=== PATIENT | male | born 1960 | race Caucasian/White ===

== ENCOUNTER 2017-02-06 11:47 | Emergency (ER) | payer OTHER ==
[~2017-02-06] VITALS: Ht 175.3 cm; Wt 60.9 kg
[2017-02-06 11:51] VITALS: TEMP 36.4; Ht 175.3 cm; Wt 60.9 kg
[2017-02-06] MEDS ORDERED: CYCL10TA6 PO (12:39)
[2017-02-06] MEDS ORDERED: IPRA1AER2 INH (12:39)
[2017-02-06] MEDS ORDERED: CYM/30 PO (12:39)
[2017-02-06] MEDS ORDERED: HYDR-5688 PO (12:39)
--- NOTE | 2017-02-06 13:11 | DIAGNOSTIC IMAGING REPORT ---
RIGHT SHOULDER 3 VIEWS HISTORY: RIGHT WITH Y VIEW, PAIN AFTER INJURY Right COMPARISON: None. FINDINGS: There is no fracture or dislocation. Soft tissues are unremarkable. The right clavicle is intact. Mild degenerative changes at the acromioclavicular and glenohumeral joints. IMPRESSION: Mild osteoarthritis. No fracture or dislocation within the right shoulder. Electronically signed by: Danilo Fine M.D. 02/06/2017 1:10 PM Dictated Date/Time: 02/06/2017 1:09 PM
--- NOTE | 2017-02-06 13:51 | EMERGENCY ROOM VISIT NOTE ---
ED Visit Note First contact with patient: 12:18 CHIEF COMPLAINT: Right shoulder injury 3 days ago HISTORY OF PRESENT ILLNESS: Patient is a [id number] 56-year-old white male who presents to the emergency department accompanied by a female friend for evaluation of right shoulder pain after an injury 3 days ago. He states that he was moving a washer up a few steps, when he reports that the washer pushed him backwards, causing him to fall, striking the back of his shoulder, then the "washer landed on top of him." He states he had pain immediately in the right scapular region and in the back of the right shoulder, but his pain worsened the following day, he now notes discomfort and spasms that radiate down his forearm. He occasionally has some tingling into the right hand. He has tried a hot tub, stretching, massage, heat, TENS unit, Aleve, Tylenol and Vicodin. He reports a remote history of a right clavicle fracture. He rates his pain a 10/10. It is worse with any attempts at movement. REVIEW OF SYSTEMS: Review of systems as per HPI. All other systems reviewed were negative. At least 6 systems reviewed. PMH: Review of systems as per HPI. All other systems reviewed were negative. 10 systems reviewed. SOCIAL HISTORY: Patient lives at home. Positive tobacco use. He is disabled. PHYSICAL EXAM: Vital Signs: Reviewed nurse's notes. CONSTITUTIONAL: Patient is a well-appearing 56-year-old white male who is awake and alert and seated in a wheelchair. MUSCULOSKELETAL: Examination of the right shoulder does not demonstrate any obvious deformity. No ecchymosis, abrasions or outward signs of trauma are noted. Exam is extremely difficult secondary to patient guarding and poor cooperation. He jumps and moves away from the examiner even with the lightest touch of his shoulder. It is difficult to localize his pain. The right upper extremity is neurovascularly intact. There is no discomfort with wrist extension or flexion, elbow flexion or extension or pronation or supination of the forearm. Distal pulses are easily palpable. Sensation light touch is intact over the entire right upper extremity. He has some discomfort in the right trapezius, no focal spasm. No pain over the spinous processes of the cervical spine, and full C-spine range of motion. EMERGENCY DEPARTMENT COURSE: X-rays of the right shoulder were obtained, and negative for acute fracture or bony abnormality. The patient was seen and assessed as above. His x-rays were obtained and were negative for acute bony abnormality. Possibility of a soft tissue injury was discussed including rotator cuff injury, capsule or labral tear, among others. The patient was fitted with an arm sling. He was encouraged to follow-up with orthopedics for further care and management of his injury. Patient was reviewed in the [facility] Prescription Drug Monitoring Program. He receives regular Mar[place]hal prescriptions from a provider in [place], last was filled the end of December. Medication reconciliation: I attest that I have personally reviewed the patient' s current medication list. Blood pressure screening : Patient was found to have normal blood pressure on screening and does not require follow-up. Problem List Medical Problems: (1) Chronic back pain Status: Chronic (2) COPD (chronic obstructive pulmonary disease) Status: Chronic Current/Historical Medications Scheduled Duloxetine HCl (Cymbalta), 30 MG PO HS Scheduled PRN Cyclobenzaprine Hcl (Flexeril), 10 MG PO TID PRN for PRN Hydrocodone/Acetaminophen 5MG/325MG (Mar[place]hal 5MG/325MG), 1 TABLET PO Q6 PRN for Pain Ipratropium-Albuterol (Combivent Respimat), 2 PUFFS INH QID PRN for Shortness of Breath Allergies Coded Allergies: Penicillins (Unverified Allergy, Unknown, DIZZINESS, 02/06/17) Vital Signs Date Time Temp Pulse Resp B/P (MAP) Pulse Ox O2 Delivery O2 Flow Rate FiO2 02/06/17 14:12 76 17 135/79 96 02/06/17 13:50 76 17 135/79 96 Room Air 02/06/17 11:51 36.4 78 18 139/86 95 Room Air Departure Information Impression Primary Impression: Right shoulder pain Referrals Candis Avalos D.O. (PCP) Nilson Perkins MD Patient Instructions [facility] Additional Instructions Continue your Marienthal as previously prescribed. Ibuprofen(Motrin, Advil) may be used for fever or pain. Use 600mg every six hours as needed. Take with food. Avoid using more than 2400mg in a 24 hour period. Do not use 2400mg per day for more than three consecutive days without physician direction. Prolonged inappropriate use can lead to stomach upset or ulcers. This medication can be taken if you need to drive, work, or perform activities which may be dangerous when taking narcotic pain medication. (AND/OR) Acetaminophen(Tylenol) may be used for fever or pain. Use 1000mg every six hours as needed. Avoid using more than 3000mg in a 24 hour period. This medication can be taken if you need to drive, work, or perform activities which may be dangerous when taking narcotic pain medication. Ice compresses for 20 minutes at a time four times daily for 2-3 days. Use the sling as instructed. Remove your arm from the sling 4-6 times a day and move all the joints around to keep them loose. Rest and elevate your injury. Continue current medications. Return to the ER immediately for any numbness, tingling, severe pain, extreme swelling in the extremity or as needed. Follow-up with [facility] for further care and management of your injury. Problem Qualifiers Primary Impression: Right shoulder pain Chronicity: acute Qualified Codes: M25.511 - Pain in right shoulder
[2017-02-06 14:12] VITALS: BP 135/79; PULSE 76; O2SAT 96
== END 2017-02-06 14:05 | disposition home or self-care (01) ==
LOC: C.EDB 11:49 → C.EDD 14:05
DX: M25.511 Pain in right shoulder (principal); W20.8XXA Other cause of strike by thrown, projected or falling object, initial encounter; F17.200 Nicotine dependence, unspecified, uncomplicated; G89.29 Other chronic pain; J44.9 Chronic obstructive pulmonary disease, unspecified; Z87.81 Personal history of (healed) traumatic fracture; Z79.899 Other long term (current) drug therapy; Z88.0 Allergy status to penicillin

== ENCOUNTER 2023-01-26 19:53 | Inpatient (IN) ==
--- NOTE | 2023-01-26 19:59 | Emergency Department Note ---
Impression & Plan Acute CVA (cerebrovascular accident), Weakness on left side of face, Muscle spasm ED Provider Note Name: SANJAY [id number] BERNARDA Age: 62 Sex: M Arrives Via: Ambulance Informant: Patient, EMS ED Provider: Cesar Solis MD Chief Complaint: Weakness Impression: As per impressions above Medical Decision Makin-year-old gentleman with history of COPD who smokes daily arrives for evaluation of strokelike symptoms. Patient last seen well at roughly 4 PM though he notes at that point even he was not feeling correct and had to go to his care home cell due to feeling weak. At around 7 PM noted by present staff to be significantly weak with slurred speech and left facial droop. 911 was called and he arrives to the ER around 8 PM. EMS called and just prior to arrival and thus stroke alert was called and admit patient on way to CT. Patient with left facial droop mildly slurred speech complaining of muscle spasms and total body weakness. He does appear to have slight left hand weakness but nonspecific and his entire body seems more weak. Patient is clearly uncomfortable though no clear etiology for that. CT of the head by my read no evidence of bleed but there is abnormal findings in the frontal cortex bilaterally. I discussed this with stroke neurology pending official CT read and given he is almost at 4.5 hours and symptoms may have actually going on longer than that plus unusual symptoms I think that TNKase is higher risk than would be benefit. Neurologist agreed with this approach and assessment. CT was read shortly thereafter and does confirm some subacute stroke anterior right brain. This furthermore confirms avoidance of TNKase. Patient was given a small dose of Dilaudid for pain control which did not seem to do so much but keeps complaining of spasms thus was given some Ativan and vastly improved. Given some IV fluids as well. Labs are unremarkable. These findings are most conclude that this is stroke related and probably occurred earlier in the day given its already showing up on CT. There is no clear LVO requiring transfer to higher level of care. Patient is not septic appearing. He has no findings of manages this on examination. There is no indication for LP at this time. He is tolerating secretions and able to swallow and thus was given aspirin 324 mg p.o. in the setting of CVA and mildly low magnesium and some IV magnesium as well. Hospitalist consulted for further management. Possibly just be some other etiology obviously treating a stroke is indicated. Hospitalist for further work up. Given that he improved with some Ativan I do not see any clear evidence of other abnormal cause of the spasm no indication for LP as above noted I think this is some on form of tetanus or Guillain-You Patient also did have some significant wheezing secondary to his COPD. He was given a nebulizer for this. Would hold off on steroids at this time. Prior Medical Record and Triage/Nursing Notes reviewed by Me Half-Way records reviewed by me. Patient confirms he does not take aspirin Differentials:Infection, dehydration, metabolic abnormality, hypo/hyper glycemia, electrolyte disturbance, anemia, hypoxia, cardiac sources, intracerebral event, toxicologic, neurologic, as well as other pathologies. Vital Signs: reviewed and remarkable for no significant abnormalities Interventions: Normal saline bolus, magnesium IV, aspirin p.o., DuoNeb Labs:Reviewed and remarkable for no significant abnormalities Imaging:CT of the head without contrast as per my informal interpretations no mass effect or bleed appreciated. Radiologist note likely subacute infarct frontal lobe. CT of the head and neck angio as per radiologist no LVO or acute concerning findings see the report for full X ray results are stated below per my interpretation: Chest: 1 view: No infiltrate, no effusion, normal cardiac border. Emphysematous findings noted. EKG:Per My Interpretation: As per my interpretation. Indication strokelike findings. Normal sinus rhythm at 63 bpm no ectopy no ischemia. QTc of 421. When compared to EKG of January 13, 2023 there is no significant change. Cardiac/Tele Monitoring: Cardiac Monitoring: An Order was placed for continuous cardiac monitoring. The monitor shows a rate of 60 with a normal sinus rhythm. Consults:Dr. Gilliam of the [facility]ist service Plan: Disposition: Hospitalization Condition: Fair History of Present Illness:62-year-old prisoner arrives for evaluation of strokelike symptoms. Patient notes that he started to feel unwell this afternoon and around 4:00 he went to his care home cell as he was just feeling too tired and weak. Staff at around 7 PM noted he had slurred speech and generalized weakness. EMS was called and they noted he was a bit more weak on his left side as well as with some slurred speech. He was too weak to stand on his own. Patient states that he has no history of stroke or cardiac disease. He smokes and is on no aspirin. He was seen about 2 weeks ago for COPD exacerbation. He denies any headache, neck pain, chest pain, abdominal pain though he notes muscle spasms all over his body. No interventions prior to arrival Past History:COPD, smoker Home Medications:Sertraline Allergies:Penicillin Vitals:Blood Pressure: 118/74, Pulse 70, RR 16, T 36.6C, O2 94% on RA Physical Exam: GENERAL: Patient is uncomfortable appearing and in mild distress. EYES: No scleral icterus, unremarkable pupils. HEAD: AT/NC NECK: No masses appreciated, nomeningismus, trachea is midline. RESPIRATORY: Mild diffuse wheezing but clear bilaterally otherwise CARDIOVASCULAR: Regular rate and rhythm.No murmurs, rubs, gallops appreciated. GASTROINTESTINAL: Abdomen soft, non-tender, no peritonitis.Bowel sounds positive.No masses appreciated. EXTREMITIES: Normal motion all extremities, no cyanosis, no edema. NEUROLOGIC: Alert and oriented, patient with slurred speech and what appears to be a left facial droop. He has diffuse full body weakness questionable left hand weakness compared to right. No sensation deficits. He is having spasms of his shoulders and back. SKIN: No rash, no jaundice, no diaphoresis. PSYCH: Appropriate GCS: 15 ED Course: Times/Reassessments: Extensive bedside care of patient. Reviewed possibility of TNKase and plan to hold off on this given the high risk. Critical Care: I have personally spent 35 minutes of critical care time in the direct management of this patient. Acute Stroke alert with consideration of thrombolytic and neuro team activation. This was a life/limb threatening event. This 35 minutes is in excess of all separately billable procedures. Cesar Solis MD Past Med/Surg History Medical History (Updated 01/27/23 @ 13:44 by Cesar Solis MD) COPD (chronic obstructive pulmonary disease) Family history of heart attack Family history of stroke Surgical History (Updated 01/27/23 @ 09:00 by Igor Nails MD) H/O hernia repair S/P tonsillectomy Family History Mother , age 84 of heart disease Coronary heart disease Heart disease Breast cancer Father , age 35 of a massive heart attack Myocardial infarction Social History (Updated 01/27/23 @ 09:02 by Igor Nails MD) Smoking Status: Former smoker Age Started Using Tobacco: 12; Age Quit Using Tobacco: 62; packs per day: 2; Second Hand Exposure: No; Do You Dip or Chew Tobacco: No; Hx Alcohol Use: Yes Alcohol type: beer Alcohol Intake Frequency: Monthly or Less Hx Substance Use: Yes Preferred Language: Ukrainian Communication Ability: Effective 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 Required: No Beliefs That Will Affect Care: None Current Living Situation: Other Current Living Situation Comment: Incarcerated current occupational status: unemployed 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 Feels Safe at Home: Yes Assistive Devices: Denture - Upper Allergies Allergies Allergy/AdvReac Type Severity Reaction Status Date / Time Penicillins Allergy Unknown DIZZINESS Unverified 02/06/17 12:37 Home Meds Home Medications Medication Instructions Recorded Confirmed albuterol sulfate 90 mcg/actuation 3 puff inhalation Q4 01/26/23 01/26/23 aerosol inhaler fluticasone 100 mcg-salmeterol 50 1 inh inhalation BID 01/26/23 01/26/23 mcg/dose blistr powdr for inhalation (Advair Diskus) sertraline 25 mg tablet 75 mg PO HS 01/26/23 01/26/23 Previous Rx's Medication Instructions Recorded aspirin 81 mg tablet,delayed 81 mg PO QAM #30 tabs 01/27/23 release atorvastatin 40 mg tablet 40 mg PO QAM #30 tabs 01/27/23 azithromycin 500 mg tablet See Rx Instructions PO .COMPLEX #3 01/27/23 tabs tiotropium bromide 2.5 2 inh inhalation DAILY #4 grams 01/27/23 mcg/actuation mist for inhalation (Spiriva Respimat) Results & Data (ED) Vital Signs Vital Signs - 24 hr 01/26/23 19:48 01/26/23 19:48 01/26/23 19:48 Temperature 37.4 C Temperature Source Oral Pulse Rate 62 Pulse Rate from SpO2 Sensor Pulse Rhythm Regular Respiratory Rate 18 Respiratory Effort / Characteristics Non-Labored Non-Labored Respiratory Depth Normal Normal Blood Pressure 149/87 H Blood Pressure Mean 107 Pulse Oximetry 94 99 Oxygen Delivery Method Room Air Sepsis Recent Fever Within 48 Hours No Sepsis New/Unexplained Change in Mental Status No Sepsis Action Taken by Nursing No Action Required 01/26/23 20:21 01/26/23 20:21 01/26/23 20:30 Temperature Temperature Source Pulse Rate 62 65 69 Pulse Rate from SpO2 Sensor 63 70 Pulse Rhythm Respiratory Rate 15 20 Respiratory Effort / Characteristics Respiratory Depth Blood Pressure Blood Pressure Mean Pulse Oximetry 94 96 Oxygen Delivery Method Sepsis Recent Fever Within 48 Hours Sepsis New/Unexplained Change in Mental Status Sepsis Action Taken by Nursing 01/26/23 20:40 01/26/23 20:50 01/26/23 21:00 Temperature Temperature Source Pulse Rate 60 61 64 Pulse Rate from SpO2 Sensor 60 60 64 Pulse Rhythm Respiratory Rate 12 17 17 Respiratory Effort / Characteristics Respiratory Depth Blood Pressure Blood Pressure Mean Pulse Oximetry 96 93 94 Oxygen Delivery Method Sepsis Recent Fever Within 48 Hours Sepsis New/Unexplained Change in Mental Status Sepsis Action Taken by Nursing 01/26/23 21:10 01/26/23 21:12 01/26/23 21:20 Temperature Temperature Source Pulse Rate 79 Pulse Rate from SpO2 Sensor 73 82 Pulse Rhythm Respiratory Rate 15 18 Respiratory Effort / Characteristics Respiratory Depth Blood Pressure 156/85 H Blood Pressure Mean 108 Pulse Oximetry 95 Oxygen Delivery Method Sepsis Recent Fever Within 48 Hours Sepsis New/Unexplained Change in Mental Status Sepsis Action Taken by Nursing 01/26/23 21:20 01/26/23 21:30 01/26/23 21:30 Temperature Temperature Source Pulse Rate Pulse Rate from SpO2 Sensor 68 64 Pulse Rhythm Respiratory Rate 16 13 Respiratory Effort / Characteristics Respiratory Depth Blood Pressure 161/84 H Blood Pressure Mean 109 Pulse Oximetry 92 92 Oxygen Delivery Method Sepsis Recent Fever Within 48 Hours Sepsis New/Unexplained Change in Mental Status Sepsis Action Taken by Nursing Laboratory Data 01/27/23 05:29 01/27/23 05:29 Lab Results 01/26/23 01/26/23 01/26/23 Range/Units 20:10 20:10 20:10 WBC 19.05 H (4.8-10.8) K/ul RBC 4.45 L (4.70-6.10) M/uL Hgb 14.3 (14.0-18.0) g/dl Hct 42.3 (42.0-52.0) % MCV 95.1 (80.0-100.0) fL MCH 32.1 (25.0-34.0) pg MCHC 33.8 (32.0-36.0) g/dL RDW Std Deviation 45.2 (36.4-46.3) fL RDW Coeff of Jinny 12.9 (11.5-14.5) % Plt Count 179 (130-400) K/uL MPV 9.6 (9.4-12.4) fL Immature Gran % (Auto) 0.6 % Neut % (Auto) 75.1 % Lymph % (Auto) 14.4 % Platte % (Auto) 9.4 % Eos % (Auto) 0.2 % Baso % (Auto) 0.3 % Neut # (Auto) 14.32 H (1.40-6.50) K/uL Lymph # (Auto) 2.74 (1.2-3.4) K/uL Platte # (Auto) 1.79 H (0.11-0.59) K/uL Eos # (Auto) 0.04 (0-0.50) K/uL Baso # (Auto) 0.05 (0-0.2) K/uL Immature Gran # (Auto) 0.11 (0.01-0.20) K/uL PT 11.4 (9.0-12.0) Seconds INR 1.0 (0.9-1.1) APTT 27.1 (21.0-31.0) Seconds PTT Ratio 1.0 Sodium (136-145) mmol/L Potassium (3.5-5.1) mmol/L Chloride (98-107) mmol/L Carbon Dioxide (21-32) mmol/L Anion Gap (3-11) BUN (6-23) mg/dl Creatinine (0.6-1.4) mg/dl Est Cr Clr Drug Dosing ml/min Est GFR ( Amer) ml/min Est GFR (Non-Af Amer) ml/min BUN/Creatinine Ratio (10-20) Glucose (70-99(Fasting)) mg/dl POC Glucose (70-99) mg/dl Calcium (8.6-10.3) mg/dl Magnesium (1.7-2.4) mg/dl Total Bilirubin (0.2-1.0) mg/dl AST (13-39) U/L ALT (7-52) U/L Alkaline Phosphatase (34-104) U/L Total Creatine Kinase (30-223) U/L Troponin I High Sens (0-20) pg/ml Total Protein (6.0-8.3) gm/dl Albumin (3.4-5.0) gm/dl Globulin (2.5-4.0) gm/dl Albumin/Globulin Ratio (0.9-2) Urine Color Urine Appearance (Clear) Urine pH (4.5-7.5) Ur Specific [place] (1.000-1.030) Urine Protein (Negative) Urine Glucose (UA) (Negative) Urine Ketones (Negative) Urine Blood (Negative) Urine Nitrite (Negative) Urine Bilirubin (Negative) Urine Urobilinogen (Negative) Ur Leukocyte Esterase (Negative) Urine WBC (Auto) (0-5) /hpf Urine RBC (Auto) (0-4) /hpf U Hyaline Cast (Auto) (0-5) /lpf U Epithel Cells (Auto) (0-5) /lpf Urine Bacteria (Auto) (Negative) SARS-CoV-2 (PCR) (Negative) Blood Type A Positive Antibody Screen NEGATIVE 01/26/23 01/26/23 01/26/23 Range/Units 20:10 20:19 20:25 WBC (4.8-10.8) K/ul RBC (4.70-6.10) M/uL Hgb (14.0-18.0) g/dl Hct (42.0-52.0) % MCV (80.0-100.0) fL MCH (25.0-34.0) pg MCHC (32.0-36.0) g/dL RDW Std Deviation (36.4-46.3) fL RDW Coeff of Jinny (11.5-14.5) % Plt Count (130-400) K/uL MPV (9.4-12.4) fL Immature Gran % (Auto) % Neut % (Auto) % Lymph % (Auto) % Platte % (Auto) % Eos % (Auto) % Baso % (Auto) % Neut # (Auto) (1.40-6.50) K/uL Lymph # (Auto) (1.2-3.4) K/uL Platte # (Auto) (0.11-0.59) K/uL Eos # (Auto) (0-0.50) K/uL Baso # (Auto) (0-0.2) K/uL Immature Gran # (Auto) (0.01-0.20) K/uL PT (9.0-12.0) Seconds INR (0.9-1.1) APTT (21.0-31.0) Seconds PTT Ratio Sodium 135 L (136-145) mmol/L Potassium 4.3 (3.5-5.1) mmol/L Chloride 106 (98-107) mmol/L Carbon Dioxide 22 (21-32) mmol/L Anion Gap 7 (3-11) BUN 16 (6-23) mg/dl Creatinine 0.81 (0.6-1.4) mg/dl Est Cr Clr Drug Dosing 95.8 ml/min Est GFR ( Amer) 111.2 ml/min Est GFR (Non-Af Amer) 95.9 ml/min BUN/Creatinine Ratio 19.8 (10-20) Glucose 91 (70-99(Fasting)) mg/dl POC Glucose 88 (70-99) mg/dl Calcium 9.1 (8.6-10.3) mg/dl Magnesium 1.9 (1.7-2.4) mg/dl Total Bilirubin 0.5 (0.2-1.0) mg/dl AST 31 (13-39) U/L ALT 54 H (7-52) U/L Alkaline Phosphatase 62 (34-104) U/L Total Creatine Kinase 100 (30-223) U/L Troponin I High Sens 3.5 (0-20) pg/ml Total Protein 7.1 (6.0-8.3) gm/dl Albumin 4.0 (3.4-5.0) gm/dl Globulin 3.1 (2.5-4.0) gm/dl Albumin/Globulin Ratio 1.3 (0.9-2) Urine Color Urine Appearance (Clear) Urine pH (4.5-7.5) Ur Specific [place] (1.000-1.030) Urine Protein (Negative) Urine Glucose (UA) (Negative) Urine Ketones (Negative) Urine Blood (Negative) Urine Nitrite (Negative) Urine Bilirubin (Negative) Urine Urobilinogen (Negative) Ur Leukocyte Esterase (Negative) Urine WBC (Auto) (0-5) /hpf Urine RBC (Auto) (0-4) /hpf U Hyaline Cast (Auto) (0-5) /lpf U Epithel Cells (Auto) (0-5) /lpf Urine Bacteria (Auto) (Negative) SARS-CoV-2 (PCR) NEGATIVE (Negative) Blood Type Antibody Screen 01/26/23 Range/Units 21:15 WBC (4.8-10.8) K/ul RBC (4.70-6.10) M/uL Hgb (14.0-18.0) g/dl Hct (42.0-52.0) % MCV (80.0-100.0) fL MCH (25.0-34.0) pg MCHC (32.0-36.0) g/dL RDW Std Deviation (36.4-46.3) fL RDW Coeff of Jinny (11.5-14.5) % Plt Count (130-400) K/uL MPV (9.4-12.4) fL Immature Gran % (Auto) % Neut % (Auto) % Lymph % (Auto) % [place]atte % (Auto) % Eos % (Auto) % Baso % (Auto) % Neut # (Auto) (1.40-6.50) K/uL Lymph # (Auto) (1.2-3.4) K/uL Platte # (Auto) (0.11-0.59) K/uL Eos # (Auto) (0-0.50) K/uL Baso # (Auto) (0-0.2) K/uL Immature Gran # (Auto) (0.01-0.20) K/uL PT (9.0-12.0) Seconds INR (0.9-1.1) APTT (21.0-31.0) Seconds PTT Ratio Sodium (136-145) mmol/L Potassium (3.5-5.1) mmol/L Chloride (98-107) mmol/L Carbon Dioxide (21-32) mmol/L Anion Gap (3-11) BUN (6-23) mg/dl Creatinine (0.6-1.4) mg/dl Est Cr Clr Drug Dosing ml/min Est GFR ( Amer) ml/min Est GFR (Non-Af Amer) ml/min BUN/Creatinine Ratio (10-20) Glucose (70-99(Fasting)) mg/dl POC Glucose (70-99) mg/dl Calcium (8.6-10.3) mg/dl Magnesium (1.7-2.4) mg/dl Total Bilirubin (0.2-1.0) mg/dl AST (13-39) U/L ALT (7-52) U/L Alkaline Phosphatase (34-104) U/L Total Creatine Kinase (30-223) U/L Troponin I High Sens (0-20) pg/ml Total Protein (6.0-8.3) gm/dl Albumin (3.4-5.0) gm/dl Globulin (2.5-4.0) gm/dl Albumin/Globulin Ratio (0.9-2) Urine Color Yellow Urine Appearance Clear (Clear) Urine pH 7.5 (4.5-7.5) Ur Specific [place] 1.031 H (1.000-1.030) Urine Protein Negative (Negative) Urine Glucose (UA) Negative (Negative) Urine Ketones Negative (Negative) Urine Blood Negative (Negative) Urine Nitrite Negative (Negative) Urine Bilirubin Negative (Negative) Urine Urobilinogen Negative (Negative) Ur Leukocyte Esterase 1+ H (Negative) Urine WBC (Auto) 10-30 H (0-5) /hpf Urine RBC (Auto) 0-4 (0-4) /hpf U Hyaline Cast (Auto) 0 (0-5) /lpf U Epithel Cells (Auto) 20-30 H (0-5) /lpf Urine Bacteria (Auto) Negative (Negative) SARS-CoV-2 (PCR) (Negative) Blood Type Antibody Screen Administered Medications Discontinued Medications Albuterol (Albuterol Hfa 8 Gm Inhaler) 3 puffs INH Q4R [facility] Stop: 02/26/23 00:00 Last Admin: 01/27/23 10:07 Dose: 3 puffs Documented By: [id number] Admin: 01/27/23 07:43 Dose: 3 puffs Documented By: EAParvin Admin: 01/27/23 03:25 Dose: 3 puffs Documented By: Admin: 01/27/23 01:18 Dose: Not Given Documented By: EMETERIO Aspirin (Aspirin 81 Mg Chew) 324 mg PO NOW STA Stop: 01/26/23 20:52 Last Admin: 01/26/23 21:03 Dose: 324 mg Documented By: YASMIN Aspirin (Aspirin 81 Mg Ectab) 81 mg PO QAM SACHA Stop: 02/26/23 08:59 Last Admin: 01/27/23 08:38 Dose: 81 mg Documented By: JABIER Atorvastatin Calcium (Atorvastatin 40 Mg Tab) 40 mg PO QAM SACHA Stop: 02/26/23 08:59 Last Admin: 01/27/23 08:38 Dose: 40 mg Documented By: JABIER Fluticasone/Vilanterol (Fluticasone/Vilanterol 100/25mcg 14 Puffs/Inhaler) 1 puffs INH DAILY SACHA Stop: 02/26/23 08:59 Last Admin: 01/27/23 08:39 Dose: 1 puffs Documented By: JABIER Hydromorphone HCl (Hydromorphone Inj 0.5 Mg/0.5 Ml Syr) 0.5 mg IV NOW STA Stop: 01/26/23 20:20 Last Admin: 01/26/23 20:27 Dose: 0.5 mg Documented By: YASMIN Sodium Chloride (Nss 1000ml) 1,000 mls @ 999 mls/hr IV .Q1H1M ONE Stop: 01/26/23 21:19 Last Infusion: 01/26/23 23:02 Dose: 0 mls/hr Documented By: Admin: 01/26/23 20:27 Dose: 999 mls/hr Documented By: YASMIN Magnesium Sulfate/Dextrose (Magnesium Sulfate / D5w) 1 gm in 100 mls @ 100 mls/hr IV NOW STA Stop: 01/26/23 21:51 Last Infusion: 01/26/23 23:02 Dose: 0 mls/hr Documented By: Admin: 01/26/23 21:02 Dose: 100 mls/hr Documented By: YASMIN Potassium Chloride/Sodium Chloride (Normal Saline W/20 Meq Kcl) 20 meq in 1,000 mls @ 80 mls/hr IV .[id number] SACHA Stop: 01/27/23 11:29 Last Admin: 01/26/23 23:43 Dose: 80 mls/hr Documented By: AG Ioversol (Ioversol 350 Mg 125ml Prefilled Syringe) 116 ml IV ONCE ONE Stop: 01/26/23 20:09 Last Admin: 01/26/23 20:09 Dose: 116 ml Documented By: ANGEL Lorazepam (Lorazepam 2 Mg/1 Ml Vial) 0.5 mg IV NOW STA Stop: 01/26/23 20:52 Last Admin: 01/26/23 21:03 Dose: 0.5 mg Documented By: YASMIN Imaging Data Radiologist's Impression: Chest X-Ray 01/26/23 20:25 SINGLE VIEW CHEST CLINICAL HISTORY: Generalized/whole body pain FINDINGS: An AP, portable, upright chest radiograph is correlated with chest x- ray and chest CT dated 01/13/2023. The cardiomediastinal silhouette is unremarkable noting atherosclerotic calcification of the thoracic aorta. Emphysema and chronic interstitial thickening is similar to previous. Right apical bullous change is similar to previous. There is bibasilar scarring/atelectasis. Foci of parenchymal scarring are seen throughout both lungs. No airspace consolidation or large pleural effusion is identified. No pneumothorax is seen. The bony thorax is grossly intact. IMPRESSION: 1. Emphysematous change with no acute cardiopulmonary abnormality identified. 2. Pulmonary nodules identified on today's chest x-ray are not well visualized by x-ray. ACT 112: Negative or not required by law. Electronically signed by: Vinh Perdue M.D. 01/27/2023 8:09 AM Discharge Plan Visit Data Chief Complaint: Stroke Alert Stated Complaint: STROKE ALERT ED Provider: Cesar Solis Discharge Problem: Acute CVA (cerebrovascular accident), Weakness on left side of face, Muscle spa sm Patient Disposition: Admitted As Inpatient Discharge Instructions Interventions: ED Discharge Assessment Last Done: 01/26/23 22:45
[2023-01-26] MEDS ORDERED: IOVERSOL 350 MG 125mL Prefilled Syringe IV ONE (20:08)
[2023-01-26 20:19] LABS: Basophils # (auto) 0.05 K/uL (0-0.2); Basophils % (auto) 0.3 %; Eosinophils # (auto) 0.04 K/uL (0-0.50); Eosinophils % (auto) 0.2 %; Hematocrit (blood only) 42.3 % (42.0-52.0); Hemoglobin 14.3 g/dl (14.0-18.0); Immature Granulocytes # (auto) 0.11 K/uL (0.01-0.20); Immature Granulocytes % (auto) 0.6 %; Lymphocytes # (auto) 2.74 K/uL (1.2-3.4); Lymphocytes % (auto) 14.4 %; Mean Corpuscular Hemoglobin 32.1 pg (25.0-34.0); Mean Corpuscular Hgb Conc 33.8 g/dL (32.0-36.0); Mean Corpuscular Volume 95.1 fL (80.0-100.0); Mean Platelet Volume 9.6 fL (9.4-12.4); Monocytes # (auto) 1.79 K/uL (0.11-0.59); Monocytes % (auto) 9.4 %; Neutrophils # (auto) 14.32 K/uL (1.40-6.50); Neutrophils % (auto) 75.1 %; Platelet Count 179 K/uL (130-400); RDW Coefficient of Variation 12.9 % (11.5-14.5); RDW Standard Deviation 45.2 fL (36.4-46.3); Red Blood Count 4.45 M/uL (4.70-6.10); White Blood Count 19.05 K/ul (4.8-10.8)
[2023-01-26] MEDS ORDERED: HYDROmorphone INJ 0.5 MG/0.5 ML SYR IV STA (20:19)
[2023-01-26] MEDS ORDERED: SODIUM CHLORIDE 0.9% 1000ML 1,000 ML IV ONE (20:19)
--- NOTE | 2023-01-26 20:31 | CT Scan Report ---
Exam(s): CT HEAD Without Contrast EXAM: CT Head Without Intravenous Contrast CLINICAL HISTORY: Reason for exam: neuro deficit, acute stroke suspected. TECHNIQUE: Axial computed tomography images of the head/brain without intravenous contrast. CTDI is 46.85 mGy and DLP is 774.27 mGy-cm. Automated exposure control was utilized for the study. A dose lowering technique was utilized adhering to the principles of ALARA. COMPARISON: None. FINDINGS: Brain: Probable subacute infarct right frontal lobe. No mass effect or early acute infarct. No acute hemorrhage. Ventricles: No hydrocephalus or midline shift. Bones/joints: No skull fracture. Soft tissues: No scalp hematoma. Sinuses: Clear. Mastoid air cells: No mastoid effusion. IMPRESSION: 1. Probable small, subacute right frontal lobe infarct. MRI brain could confirm. 2. No early acute infarct, bleed, or acute intracranial abnormality. Communications: Call Doctor Stroke Electronically signed by: Marleni Chan M.D. 01/26/23 20:30 PM
[2023-01-26 20:33] LABS: Partial Thromboplastin Time 27.1 Seconds (21.0-31.0); Prothrombin Time 11.4 Seconds (9.0-12.0)
--- NOTE | 2023-01-26 20:33 | CT Scan Report ---
Exam(s): CTA HEAD With Contrast IV Amt: 118 ml optiray 350 EXAM: CT Angiography Head With Intravenous Contrast CLINICAL HISTORY: Reason for exam: neuro deficit, acute stroke suspected. TECHNIQUE: Axial computed tomographic angiography images of the head with intravenous contrast. CTDI is 46.85 mGy and DLP is 774.27 mGy-cm. Automated exposure control was utilized for the study. A dose lowering technique was utilized adhering to the principles of ALARA. MIP reconstructed images were created and reviewed. CONTRAST: Patient received 118 ml optiray 350 of IV contrast COMPARISON: None. FINDINGS: Right internal carotid artery: Patent. Right anterior cerebral artery: Patent. Right middle cerebral artery: Patent. Right posterior cerebral artery: Patent. Right vertebral artery: Patent. Left internal carotid artery: Patent. Left anterior cerebral artery: Patent. Left middle cerebral artery: Patent. Left posterior cerebral artery: Patent. Left vertebral artery: Patent. Basilar artery: Patent. Other: Mild atherosclerosis bilateral cavernous ICA with less than 50% stenosis. IMPRESSION: 1. No aneurysm or large vessel occlusion. Communications: Call Doctor Stroke Electronically signed by: Marleni Chan M.D. 01/26/23 20:32 PM
--- NOTE | 2023-01-26 20:35 | CT Scan Report ---
Exam(s): CTA NECK With Contrast IV Amt: 115 ml optiray 350 EXAM: CT Angiography Neck With Intravenous Contrast CLINICAL HISTORY: Reason for exam: neuro deficit, acute stroke suspected. TECHNIQUE: Routine carotid CT angiography protocol was performed with intravenous contrast. NASCET criteria using the distal ICAs for comparison were used for evaluation of stenoses. CTDI is 12.63 mGy and DLP is 483.71 mGy-cm. Automated exposure control was utilized for the study. A dose lowering technique was utilized adhering to the principles of ALARA. MIP reconstructed images were created and reviewed. CONTRAST: Patient received 115 ml optiray 350 of IV contrast COMPARISON: None. FINDINGS: Right common carotid artery: Patent. Right internal carotid artery: Patent. Right vertebral artery: Patent. Left common carotid artery: Patent. Left internal carotid artery: Patent. Left vertebral artery: Patent. Left dominant system. Other: Mild atherosclerosis bilateral carotid bifurcations as well as of the aorta and great vessel origins. Degree of stenosis is less than 50% at all vessels. Moderate to severe emphysema. IMPRESSION: 1. Mild atherosclerosis without significant stenosis. 2. No dissection, occlusion, or significant stenosis. 3. Emphysema. CAROTID STENOSIS REFERENCE USING NASCET CRITERIA: % ICA stenosis = (1 - narrowest ICA diameter/diameter of distal cervical ICA) x 100. Mild - <50% stenosis. Moderate - 50-69% stenosis. Severe - 70-94% stenosis. Near occlusion - 95-99% stenosis. Occluded - 100% stenosis. Communications: Call Doctor Stroke Electronically signed by: Marleni Chan M.D. 01/26/23 20:34 PM
[2023-01-26 20:42] LABS: Albumin Globulin Ratio 1.3 (0.9-2); BUN Creatinine Ratio 19.8 (10-20); Bilirubin,Total 0.5 mg/dl (0.2-1.0); Calcium 9.1 mg/dl (8.6-10.3); Creatinine Clr Calc Pharmacy 95.8 ml/min; Est GFR (African American) 111.2 ml/min; Est GFR (Non-African American) 95.9 ml/min; Globulin 3.1 gm/dl (2.5-4.0); Magnesium 1.9 mg/dl (1.7-2.4); Potassium 4.3 mmol/L (3.5-5.1); Total Protein 7.1 gm/dl (6.0-8.3)
[2023-01-26 20:48] LABS: Troponin I High Sensitivity 3.5 pg/ml (0-20)
[2023-01-26] MEDS ORDERED: ASPIRIN 81 MG CHEW PO STA (20:51)
[2023-01-26] MEDS ORDERED: LORazepam 2 MG/1 ML VIAL IV STA (20:51)
[2023-01-26] MEDS ORDERED: MAGNESIUM SULFATE / D5W 1 GM/100 ML BAG IV STA (20:52)
[2023-01-26 21:32] LABS: Appearance Urine Clear (Clear); Bacteria Urine Automated Negative (Negative); Bilirubin Urine Negative (Negative); Blood Urine Negative (Negative); Cast Urine Automated 0 /lpf (0-5); Color Urine Yellow; Epithelial Cell Urine Auto 20-30 /lpf (0-5); Glucose Urine UA Negative (Negative); Ketones Urine Negative (Negative); Leukocyte Esterase Urine 1+ (Negative); Nitrite Urine Negative (Negative); Protein Urine Negative (Negative); RBC Urine Automated 0-4 /hpf (0-4); Specific Gravity Urine 1.031 (1.000-1.030); Urobilinogen Urine Negative (Negative); pH Urine 7.5 (4.5-7.5)
--- NOTE | 2023-01-26 21:38 | History & Physical Report ---
Date of Service January 26, 2023 Assessment & Plan (1) CVA (cerebral vascular accident): (2) COPD exacerbation: (3) TIA (transient ischemic attack): (4) Family history of heart attack: (5) Family history of stroke: Plan Chronic right frontal lobe infarct/acute but resolved TIA symptoms involving left-sided weakness and slurred speech- CT scan of head initially suggested small subacute right frontal lobe infarct, however, follow-up MRI notes this is chronic CTA of head notes bilateral cavernous ICA stenosis less than 50% Symptoms of left-sided weakness and slurred speech had improved significantly to almost resolved by the time of this admission The patient will be admitted to telemetry for serial cardiac enzymes, serial EKG's, cardiac rhythm monitoring and a 2-D echocardiogram with Dopplers. Patient given aspirin 324 mg Admit with stroke without tPA order set Strong family history of cardiovascular and cerebrovascular disease Distant history of tobacco use Permissive hypertension overnight Consult PT/OT/speech Check a fasting lipid panel, hemoglobin A1c COPD exacerbation- CTA of neck notes moderately severe emphysema Continue Breo Ellipta and Ventolin HFA DuoNebs every 2 hours as needed Expect return to [facility] once patient is ultimately discharged History of Present Illness Chief Complaint: The patient presents to the emergency department with complaint of a cute onset of left arm and leg weakness and numbness, and slurred speech late this afternoon, which has essentially returned to normal at the time of this interview Primary Care Provider: [facility] The patient is a 62-year-old male with a past medical history including COPD, anxiety with depression, presently incarcerated. He has a significant family history of vascular disease, with both heart attacks and strokes both sides of family, including mother and father. He presents to the emergency department with a cute onset of symptoms as noted above, with significant to near complete resolution by the time of the interview. Allergies Allergy/AdvReac Type Severity Reaction Status Date / Time Penicillins Allergy Unknown DIZZINESS Unverified 02/06/17 12:37 Home Medications Medication Instructions Recorded Confirmed Type albuterol sulfate 90 mcg/actuation 3 puff inhalation Q4 01/26/23 01/26/23 History aerosol inhaler fluticasone 100 mcg-salmeterol 50 1 inh inhalation BID 01/26/23 01/26/23 History mcg/dose blistr powdr for inhalation (Advair Diskus) sertraline 25 mg tablet 75 mg PO HS 01/26/23 01/26/23 History Past Med/Surg History Medical History (Updated 01/27/23 @ 03:29 by Anselmo Gilliam MD) COPD (chronic obstructive pulmonary disease) Family history of heart attack Family history of stroke Surgical History H/O hernia repair Social History Smoking Status: Former smoker Second Hand Exposure: No; Do You Dip or Chew Tobacco: No; Tobacco Cessation Education Requested by Patient: No Hx Alcohol Use: Yes Hx Substance Use: Yes Preferred Language: Beninese Communication Ability: Effective Commodities Requirements Analyst Required: No Beliefs That Will Affect Care: None Current Living Situation: Other Current Living Situation Comment: Incarcerated Other Information That Helps Us Care for You: No Feels Safe at Home: Yes Safety Concerns: Feels Safe At This Time Assistive Devices: Denture - Upper Review of Systems Review of Systems: The patient denies chest pain, palpitations, change in his chronic shortness of breath and dyspnea on exertion, cough, lower extremity swelling, sore throat, fevers, chills, sweats, weight change, fatigue, nausea, vomiting, diarrhea , constipation, abdominal pain, pelvic pain, blood in urine or stool, dysuria, urinary frequency or urgency, loss of consciousness, rash, abnormal bruising or bleeding, focal or generalized weakness, numbness or tingling in right arm or leg, generalized arthralgias or myalgias, back or neck pain, or night sweats. The review of systems is otherwise negative other than for that already noted above, and at least 10 systems have been reviewed. Physical Exam 2 Physical Exam: The patient is awake, unkempt appearing, alert and oriented 3, well developed and well nourished, normocephalic and atraumatic, lying in bed and in no acute distress. HEENT--PERRL, EOMI, mucous membranes and oropharynx dry. Neck--supple. No JVD. No bruits. Thyroid normal, trachea midline, no adenopathy. Heart--normal S1 and S2. No murmurs, rubs or gallops. Lungs--few coarse breath sounds bilaterally. No respiratory distress, no accessory muscle use. Abdomen--normal bowel sounds and soft. Nontender. Nondistended, no hernias or masses, no organomegaly. Extremities--no cyanosis or clubbing. No edema. Dermatologic--normal skin turgor, normal color, no abnormal lymph nodes, no rash. Neurologic--cranial nerves II through XII grossly intact. Rheumatologic--normal range of motion. Psychiatric--normal affect. Results & Data Results & Data Vital Signs (Past 12 Hours) Vital Signs Temp Pulse Resp BP Pulse Ox O2 Del Method 01/26/23 20:21 62 01/26/23 19:48 99 Room Air 01/26/23 19:48 37.4 C 62 18 149/87 H 94 Laboratory Results Laboratory Results WBC 19.05 K/ul (4.8-10.8) H 01/26/23 20:10 RBC 4.45 M/uL (4.70-6.10) L 01/26/23 20:10 Hgb 14.3 g/dl (14.0-18.0) 01/26/23 20:10 Hct 42.3 % (42.0-52.0) 01/26/23 20:10 MCV 95.1 fL (80.0-100.0) 01/26/23 20:10 MCH 32.1 pg (25.0-34.0) 01/26/23 20:10 MCHC 33.8 g/dL (32.0-36.0) 01/26/23 20:10 RDW Std Deviation 45.2 fL (36.4-46.3) 01/26/23 20:10 RDW Coeff of Jinny 12.9 % (11.5-14.5) 01/26/23 20:10 Plt Count 179 K/uL (130-400) 01/26/23 20:10 MPV 9.6 fL (9.4-12.4) 01/26/23 20:10 Immature Gran % (Auto) 0.6 % 01/26/23 20:10 Neut % (Auto) 75.1 % 01/26/23 20:10 Lymph % (Auto) 14.4 % 01/26/23 20:10 [place] % (Auto) 9.4 % 01/26/23 20:10 Eos % (Auto) 0.2 % 01/26/23 20:10 Baso % (Auto) 0.3 % 01/26/23 20:10 Neut # (Auto) 14.32 K/uL (1.40-6.50) H 01/26/23 20:10 Lymph # (Auto) 2.74 K/uL (1.2-3.4) 01/26/23 20:10 [place] # (Auto) 1.79 K/uL (0.11-0.59) H 01/26/23 20:10 Eos # (Auto) 0.04 K/uL (0-0.50) 01/26/23 20:10 Baso # (Auto) 0.05 K/uL (0-0.2) 01/26/23 20:10 Immature Gran # (Auto) 0.11 K/uL (0.01-0.20) 01/26/23 20:10 PT 11.4 Seconds (9.0-12.0) 01/26/23 20:10 INR 1.0 (0.9-1.1) 01/26/23 20:10 APTT 27.1 Seconds (21.0-31.0) 01/26/23 20:10 PTT Ratio 1.0 01/26/23 20:10 Sodium 135 mmol/L (136-145) L 01/26/23 20:10 Potassium 4.3 mmol/L (3.5-5.1) 01/26/23 20:10 Chloride 106 mmol/L (98-107) 01/26/23 20:10 Carbon Dioxide 22 mmol/L (21-32) 01/26/23 20:10 Anion Gap 7 (3-11) 01/26/23 20:10 BUN 16 mg/dl (6-23) 01/26/23 20:10 Creatinine 0.81 mg/dl (0.6-1.4) 01/26/23 20:10 Est Cr Clr Drug Dosing 95.8 ml/min 01/26/23 20:10 Est GFR ( Amer) 111.2 ml/min 01/26/23 20:10 Est GFR (Non-Af Amer) 95.9 ml/min 01/26/23 20:10 BUN/Creatinine Ratio 19.8 (10-20) 01/26/23 20:10 Glucose 91 mg/dl (70-99(Fasting)) 01/26/23 20:10 POC Glucose 88 mg/dl (70-99) 01/26/23 20:19 Calcium 9.1 mg/dl (8.6-10.3) 01/26/23 20:10 Magnesium 1.9 mg/dl (1.7-2.4) 01/26/23 20:10 Total Bilirubin 0.5 mg/dl (0.2-1.0) 01/26/23 20:10 AST 31 U/L (13-39) 01/26/23 20:10 ALT 54 U/L (7-52) H 01/26/23 20:10 Alkaline Phosphatase 62 U/L (34-104) 01/26/23 20:10 Total Creatine Kinase 100 U/L (30-223) 01/26/23 20:10 Troponin I High Sens 5.1 pg/ml (0-20) 01/26/23 23:44 Total Protein 7.1 gm/dl (6.0-8.3) 01/26/23 20:10 Albumin 4.0 gm/dl (3.4-5.0) 01/26/23 20:10 Globulin 3.1 gm/dl (2.5-4.0) 01/26/23 20:10 Albumin/Globulin Ratio 1.3 (0.9-2) 01/26/23 20:10 Urine Color Yellow 01/26/23 21:15 Urine Appearance Clear (Clear) 01/26/23 21:15 Urine pH 7.5 (4.5-7.5) 01/26/23 21:15 Ur Specific [place] 1.031 (1.000-1.030) H 01/26/23 21:15 Urine Protein Negative (Negative) 01/26/23 21:15 Urine Glucose (UA) Negative (Negative) 01/26/23 21:15 Urine Ketones Negative (Negative) 01/26/23 21:15 Urine Blood Negative (Negative) 01/26/23 21:15 Urine Nitrite Negative (Negative) 01/26/23 21:15 Urine Bilirubin Negative (Negative) 01/26/23 21:15 Urine Urobilinogen Negative (Negative) 01/26/23 21:15 Ur Leukocyte Esterase 1+ (Negative) H 01/26/23 21:15 Urine WBC (Auto) 10-30 /hpf (0-5) H 01/26/23 21:15 Urine RBC (Auto) 0-4 /hpf (0-4) 01/26/23 21:15 U Hyaline Cast (Auto) 0 /lpf (0-5) 01/26/23 21:15 U Epithel Cells (Auto) 20-30 /lpf (0-5) H 01/26/23 21:15 Urine Bacteria (Auto) Negative (Negative) 01/26/23 21:15 SARS-CoV-2 (PCR) NEGATIVE (Negative) 01/26/23 20:25 Blood Type A Positive 01/26/23 20:10 Antibody Screen NEGATIVE 01/26/23 20:[address] 01/26/23 19:56 CR Exam(s): CT HEAD Without Contrast EXAM: CT Head Without Intravenous Contrast CLINICAL HISTORY: Reason for exam: neuro deficit, acute stroke suspected. TECHNIQUE: Axial computed tomography images of the head/brain without intravenous contrast. CTDI is 46.85 mGy and DLP is 774.27 mGy-cm. Automated exposure control was utilized for the study. A dose lowering technique was utilized adhering to the principles of ALARA. COMPARISON: None. FINDINGS: Brain: Probable subacute infarct right frontal lobe. No mass effect or early acute infarct. No acute hemorrhage. Ventricles: No hydrocephalus or midline shift. Bones/joints: No skull fracture. Soft tissues: No scalp hematoma. Sinuses: Clear. Mastoid air cells: No mastoid effusion. IMPRESSION: 1. Probable small, subacute right frontal lobe infarct. MRI brain could confirm. 2. No early acute infarct, bleed, or acute intracranial abnormality. Communications: Call Doctor Stroke Electronically signed by: Marleni Chan M.D. 01/26/23 20:30 PM Head CTA 01/26/23 19:56 CR Exam(s): CTA HEAD With Contrast IV Amt: 118 ml optiray 350 EXAM: CT Angiography Head With Intravenous Contrast CLINICAL HISTORY: Reason for exam: neuro deficit, acute stroke suspected. TECHNIQUE: Axial computed tomographic angiography images of the head with intravenous contrast. CTDI is 46.85 mGy and DLP is 774.27 mGy-cm. Automated exposure control was utilized for the study. A dose lowering technique was utilized adhering to the principles of ALARA. MIP reconstructed images were created and reviewed. CONTRAST: Patient received 118 ml optiray 350 of IV contrast COMPARISON: None. FINDINGS: Right internal carotid artery: Patent. Right anterior cerebral artery: Patent. Right middle cerebral artery: Patent. Right posterior cerebral artery: Patent. Right vertebral artery: Patent. Left internal carotid artery: Patent. Left anterior cerebral artery: Patent. Left middle cerebral artery: Patent. Left posterior cerebral artery: Patent. Left vertebral artery: Patent. Basilar artery: Patent. Other: Mild atherosclerosis bilateral cavernous ICA with less than 50% stenosis. IMPRESSION: 1. No aneurysm or large vessel occlusion. Communications: Call Doctor Stroke Electronically signed by: Marleni Chan M.D. 01/26/23 20:32 PM Neck CTA 01/26/23 19:56 CR Exam(s): CTA NECK With Contrast IV Amt: 115 ml optiray 350 EXAM: CT Angiography Neck With Intravenous Contrast CLINICAL HISTORY: Reason for exam: neuro deficit, acute stroke suspected. TECHNIQUE: Routine carotid CT angiography protocol was performed with intravenous contrast. NASCET criteria using the distal ICAs for comparison were used for evaluation of stenoses. CTDI is 12.63 mGy and DLP is 483.71 mGy-cm. Automated exposure control was utilized for the study. A dose lowering technique was utilized adhering to the principles of ALARA. MIP reconstructed images were created and reviewed. CONTRAST: Patient received 115 ml optiray 350 of IV contrast COMPARISON: None. FINDINGS: Right common carotid artery: Patent. Right internal carotid artery: Patent. Right vertebral artery: Patent. Left common carotid artery: Patent. Left internal carotid artery: Patent. Left vertebral artery: Patent. Left dominant system. Other: Mild atherosclerosis bilateral carotid bifurcations as well as of the aorta and great vessel origins. Degree of stenosis is less than 50% at all vessels. Moderate to severe emphysema. IMPRESSION: 1. Mild atherosclerosis without significant stenosis. 2. No dissection, occlusion, or significant stenosis. 3. Emphysema. CAROTID STENOSIS REFERENCE USING NASCET CRITERIA: % ICA stenosis = (1 - narrowest ICA diameter/diameter of distal cervical ICA) x 100. Mild - <50% stenosis. Moderate - 50-69% stenosis. Severe - 70-94% stenosis. Near occlusion - 95-99% stenosis. Occluded - 100% stenosis. Communications: Call Doctor Stroke Electronically signed by: Marleni Chan M.D. 01/26/23 20:34 PM Orbit X-Ray 01/26/23 22:28 BONY ORBITS 3 VIEWS CLINICAL HISTORY: MRI clearance. FINDINGS: 3 views of the bony orbits are obtained. No prior studies are available for comparison at the time of dictation. There is no radiodense/metallic foreign body seen in the region of the bony orbits. The bony orbits are intact as imaged. The visualized paranasal sinuses and the mastoid air cells appear clear. The imaged calvarium appears intact. IMPRESSION: There is no radiodense/metallic foreign body seen in the region of the bony orbits. ACT 112: Negative or not required by law. Electronically signed by: Vinh Perdue M.D. 01/26/2023 11:26 PM Brain MRI 01/27/23 00:34 Exam(s): MRI HEAD Without Contrast EXAM: MR Head Without Intravenous Contrast CLINICAL HISTORY: Reason for exam: CVA Right frontal lobe on CT. TECHNIQUE: Magnetic resonance images of the head/brain without intravenous contrast in multiple planes. Mild motion artifact. COMPARISON: Noncontrast head CT 01/26/23. FINDINGS: Brain: Small, chronic right frontal lobe infarct, corresponds to the CT findings. No mass-effect or acute infarct. No acute or chronic hemorrhage. No herniation. Ventricles: No hydrocephalus or midline shift. Bones/joints: No calvarial lesions. Soft tissues: No scalp hematoma. Sinuses: Clear. Mastoid air cells: No mastoid effusion. IMPRESSION: 1. Small right frontal lobe infarct is chronic. 2. No acute infarct, bleed, or acute intracranial abnormality. Electronically signed by: Marleni Chan M.D. 01/27/23 01:51 AM Code Status & VTE Plan Code Status Full code VTE Prophylaxis Plan VTE Prophylaxis will be ordered: Yes PG Care Time/CCT Total # of Minutes Spent Total Time Spent with Patient: Total time spent is greater than 50% in coordination of care (as documented) at patient's floor/unit and/or counseling patient: Coding Level of Care Code 17600 INT INP/OBS CARE 3/75MIN Diagnoses CVA (cerebral vascular accident) I63.9 COPD exacerbation J44.1 TIA (transient ischemic attack) G45.9 Family history of heart attack Z82.49 Family history of stroke Z82.3
[2023-01-26] MEDS ORDERED: ONDANSETRON INJ 2 MG/ML 2 ML VIAL IV PRN (23:00)
[2023-01-26] MEDS ORDERED: PHARMACIST DISCHARGE MED REC CONSULT PRN (23:00)
[2023-01-26] MEDS ORDERED: ACETAMINOPHEN 325 MG TAB PO PRN (23:00)
[2023-01-26] MEDS ORDERED: NSS + 20MEQ KCL 20 MEQ/1,000 ML BAG IV SCH (23:00)
--- NOTE | 2023-01-26 23:28 | XRay Report ---
BONY ORBITS 3 VIEWS CLINICAL HISTORY: MRI clearance. FINDINGS: 3 views of the bony orbits are obtained. No prior studies are available for comparison at t he time of dictation. There is no radiodense/metallic foreign body seen in the region of the bony orb its. The bony orbits are intact as imaged. The visualized paranasal sinuses and the mastoid air cells appear clear. The imaged calvarium appears intact. IMPRESSION: There is no radiodense/metallic foreign body seen in the region of the bony orbits. ACT 112: Negative or not required by law. Electronically signed by: Vinh Perdue M.D. 01/26/2023 11:26 PM
[2023-01-27] MEDS: ALBUTEROL HFA 8 GM INHALER INH SCH ×4 (01:18→10:07)
--- NOTE | 2023-01-27 01:52 | Magnetic Resonance Report ---
Exam(s): MRI HEAD Without Contrast EXAM: MR Head Without Intravenous Contrast CLINICAL HISTORY: Reason for exam: CVA Right frontal lobe on CT. TECHNIQUE: Magnetic resonance images of the head/brain without intravenous contrast in multiple planes. Mild motion artifact. COMPARISON: Noncontrast head CT 01/26/23. FINDINGS: Brain: Small, chronic right frontal lobe infarct, corresponds to the CT findings. No mass-effect or acute infarct. No acute or chronic hemorrhage. No herniation. Ventricles: No hydrocephalus or midline shift. Bones/joints: No calvarial lesions. Soft tissues: No scalp hematoma. Sinuses: Clear. Mastoid air cells: No mastoid effusion. IMPRESSION: 1. Small right frontal lobe infarct is chronic. 2. No acute infarct, bleed, or acute intracranial abnormality. Electronically signed by: Marleni Chan M.D. 01/27/23 01:51 AM
[2023-01-27] MEDS ORDERED: ALBUT/IPRATROP 3MG/0.5MG NEB 3 ML VIAL NEB PRN (03:32)
[2023-01-27 06:07] LABS: Basophils # (auto) 0.08 K/uL (0-0.2); Basophils % (auto) 0.5 %; Hematocrit (blood only) 41.3 % (42.0-52.0); Hemoglobin 13.9 g/dl (14.0-18.0); Immature Granulocytes # (auto) 0.07 K/uL (0.01-0.20); Immature Granulocytes % (auto) 0.5 %; Lymphocytes # (auto) 3.95 K/uL (1.2-3.4); Lymphocytes % (auto) 26.1 %; Mean Corpuscular Hemoglobin 32.3 pg (25.0-34.0); Mean Corpuscular Hgb Conc 33.7 g/dL (32.0-36.0); Monocytes # (auto) 1.78 K/uL (0.11-0.59); Monocytes % (auto) 11.8 %; Neutrophils # (auto) 8.95 K/uL (1.40-6.50); Neutrophils % (auto) 59.1 %; Platelet Count 197 K/uL (130-400); RDW Coefficient of Variation 13.2 % (11.5-14.5); RDW Standard Deviation 46.5 fL (36.4-46.3); White Blood Count 15.13 K/ul (4.8-10.8)
[2023-01-27 06:24] LABS: Albumin Globulin Ratio 1.2 (0.9-2); Albumin Level 3.6 gm/dl (3.4-5.0); BUN Creatinine Ratio 19.1 (10-20); Bilirubin,Total 0.4 mg/dl (0.2-1.0); Calcium 8.7 mg/dl (8.6-10.3); Chol HDL Ratio 4.3 (0-5); Creatinine Clr Calc Pharmacy 87.2 ml/min; Est GFR (Non-African American) 92.3 ml/min; Globulin 2.9 gm/dl (2.5-4.0); Potassium 4.2 mmol/L (3.5-5.1); Total Protein 6.5 gm/dl (6.0-8.3)
[2023-01-27 07:27] LABS: Estimated Average Glucose 131 mg/dl; Hemoglobin A1C 6.2 % (4.5-5.6)
--- NOTE | 2023-01-27 08:10 | XRay Report ---
SINGLE VIEW CHEST CLINICAL HISTORY: Generalized/whole body pain FINDINGS: An AP, portable, upright chest radiograph is correlated with chest x-ray and chest CT dated 01/13/2023. The cardiomediastinal silhouette is unremarkable noting atherosclerotic calcification of the thoracic aorta. Emphysema and chronic interstitial thickening is similar to previous. Right apica l bullous change is similar to previous. There is bibasilar scarring/atelectasis. Foci of parenchymal scarring are seen throughout both lungs. No airspace consolidation or large pleural effusion is iden tified. No pneumothorax is seen. The bony thorax is grossly intact. IMPRESSION: 1. Emphysematous change with no acute cardiopulmonary abnormality identified. 2. Pulmonary nodules identified on today's chest x-ray are not well visualized by x-ray. ACT 112: Negative or not required by law. Electronically signed by: Vinh Perdue M.D. 01/27/2023 8:09 AM
--- NOTE | 2023-01-27 08:50 | Neurology Consultation ---
Date of Consultation January 27, 2023 Assessment & Plan (1) TIA (transient ischemic attack): (2) Acute left hemiparesis: Plan this patient had an acute event January 26 in the afternoon consistent with a TIA. He has some dysarthria with left-sided weakness and dysesthesias. This h as all clinically improved except for some slight asymmetry of the corner of the mouth on the left and some dysesthesias on the left face compared to the right. He has an equivocal toe on the left and normal on the right. MRI of the brain shows no evidence of acute stroke. 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 He has a history of heavy cigarette smoking as his main risk factor for stroke. CT angiography shows no significant stenoses. Recommendations: 1. continue 81 milligram aspirin tablet daily for stroke prevention. 2. Continue atorvastatin 40 milligrams. His baseline total cholesterol was 189. He does not need high-dose statins. 3. keep off cigarette smoking 4. increase activity as able. Overall, I spent a total of 80 minutes with this case including review of records, review of CT and MRI films, direct evaluation the patient bedside, reports generation, and discussion of the case with the patient and RN at bedside and Dr. Garcia including differential diagnosis and treatment options. History of Present Illness Reason for Consultation: Patient is a 62-year-old, who I was asked to see the request of Dr. Gilliam, for neurologic consultation regarding stroke. Requesting Physician: Dr. Gilliam Attending Physician: Shen Garcia History of Present Illness this patient was a long-time cigarette smoker starting at age 12 and quitting about 8 months ago. He smoked 1/2 to 2 packs per day on a regular basis. He has COPD. He does not have any heart disease, diabetes, dyslipidemia, or history of stroke. he has been at the [facility] for the last 7 months. On January 13 he came to the emergency room with shortness of breath and was diagnosed with bronchitis and an exacerbation of his COPD. He was given azithromycin and prednisone. He was not sure if this helped but it was stopped for a while and recently restarted prior to this admission. His breathing has been somewhat compromised this month with some shortness of chest tightness /congestion. Patient woke up around 0600 January 26 feeling somewhat short of breath and a bifrontal achy type headache. 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 Around 1529, he requested to go lay down, And around 07/04/1999 he was found to have a left facial droop and left-sided weakness. He remembers having numbness and tingling of his left face and left arm and leg as well as the weakness. He could walk well. He still had the mild bifrontal headache but he did not have any new vision issues or mentation problems. His speech was a little slurred. He arrived at the emergency room at 19:48, with a temperature 37.4, pulse 62 and regular, respiratory rate 18, blood pressure 149/87, new to saturation 94 percent. His examination was considered non focal with no specific weakness or numbness or speech problem noted. White count was 19 and the rest of the CBC was normal. Chem profile was unremarkable as well as urinalysis. CT scan of the head showed a small right frontal stroke of questionable age. CT angiography of the head was unremarkable. CT angiography of the neck showed some mild bilateral carotid bifurcation atherosclerosis but no significant stenoses. MRI of the brain revealed a small right frontal stroke of an old nature. There were no acute changes. Otherwise he had some mild old small vessel ischemic disease. I reviewed the CT scan and MRI films. This morning the patient feels much better. He has no headache or speech problem. He denies any weakness in the arms or legs. He still has a little bit of tingling on the left side of the face. Hemoglobin A1c was 6.2. Triglyceride was 109 and total cholesterol 189. Repeat white count was 15 and Chem profile was unremarkable. Blood pressure today was 127/86 Allergies Allergy/AdvReac Type Severity Reaction Status Date / Time Penicillins Allergy Unknown DIZZINESS Unverified 02/06/17 12:37 Home Medications Medication Instructions Recorded Confirmed Type albuterol sulfate 90 mcg/actuation 3 puff inhalation Q4 01/26/23 01/26/23 History aerosol inhaler fluticasone 100 mcg-salmeterol 50 1 inh inhalation BID 01/26/23 01/26/23 History mcg/dose blistr powdr for inhalation (Advair Diskus) sertraline 25 mg tablet 75 mg PO HS 01/26/23 01/26/23 History Patient History Medical History (Updated 01/27/23 @ 09:05 by Igor Nails MD) COPD (chronic obstructive pulmonary disease) Family history of heart attack Family history of stroke Surgical History (Updated 01/27/23 @ 09:00 by Igor Nails MD) H/O hernia repair S/P tonsillectomy Family History Mother , age 84 of heart disease Coronary heart disease Heart disease Breast cancer Father , age 35 of a massive heart attack Myocardial infarction Social History (Updated 01/27/23 @ 09:02 by Igor Nails MD) Smoking Status: Former smoker Age Started Using Tobacco: 12; Age Quit Using Tobacco: 62; packs per day: 2; Second Hand Exposure: No; Do You Dip or Chew Tobacco: No; Hx Alcohol Use: Yes Alcohol type: beer Alcohol Intake Frequency: Monthly or Less Hx Substance Use: Yes Preferred Language: Swedish Communication Ability: Effective Sisal Operator Required: No Beliefs That Will Affect Care: None Current Living Situation: Other Current Living Situation Comment: Incarcerated current occupational status: unemployed 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 Feels Safe at Home: Yes Assistive Devices: Denture - Upper Review of Systems Constitutional: no fever, no fatigue and no weakness Eyes: no diplopia, no eye pain and no worsening vision Ear, Nose, Mouth, Throat: no ear pain, no tinnitus, no hearing loss, no dizziness, no snoring, no hoarseness and no dysphagia Respiratory: + chest congestion and + dyspnea; no cough Cardiovascular: no chest pain, no palpitations and no lightheadedness Gastrointestinal: no abdominal pain, no nausea and no vomiting Musculoskeletal: no back pain, no neck pain, no radicular pain, no joint pain and no myalgia Integumentary: no rash and no lesions Neurologic: + tingling; no gait abnormality, no localized weakness, no generalized weakness, no numbness, no tremor(s), no abnormal movements, no headache(s), no abnormal speech, no confusion and no memory loss Psychiatric: no depression, no irritability, no anxiety, no difficulty concentrating, no confusion and no hallucinations Endocrine: no fatigue and no flushing Hematologic / Lymphatic: no easy bleeding and no easy bruising Allergy / Immunological: no urticaria and no problem reported Exam (Neuro) Physical Exam: The patient is right-handed. The patient is awake, alert, and attentive. Speech is normal without any aphasia or dysarthria. The patient can name objects, repeat phrases, and has normal spontaneous speech. Mentation and thought processes are intact, with orientation to person, place and time, and normal fund of knowledge. Attention and concentration are normal. Mood and affect are normal and appropriate. General appearance and grooming are normal. Short and long-term memory are intact. The discs are sharp with positive venous pulsations bilaterally. There are no exudates, hemorrhages, or blood vessel changes seen. Pupils are 4 mm bilaterally and reactive to light. Extraocular eye muscles are intact without nystagmus. Visual acuity and visual maxwell seem normal grossly to confrontation. There was some decreased sensation in the left lower cheek and jaw line compared to the right with the forehead being spared bilaterally. Corneal reflexes are positive bilaterally. There was some asymmetry of movement at the corner of the mouth on the left compared to the right, with a "slight" droop. Hearing seems normal bilaterally. Palate moves well without asymmetry. There is normal sternocleidomastoid and trapezius (shoulder shrug) strength bilaterally. Tongue is midline with good strength bilaterally. Neck has a full range of motion without discomfort. There are no cervical bruits bilaterally. There are no cranial or ocular bruits. Heart is without murmur. There is a regular rhythm and rate. Cervical, thoracic, and lumbar spine are nontender to palpation. Gait was not tested but stance sitting in bed is normal With outstretched arms there is no drift. There are no resting, postural, or action tremors. There is no ataxia with finger to nose testing. There is good facility in the hands. No other abnormal involuntary movements are noted. Motor strength is 5/5 diffusely in the arms bilaterally including deltoids, biceps, triceps, brachioradialis, wrist flexors and extensors, motor builder assembler, and intrinsic hand muscles. Motor strength is 5/5 diffusely in the legs bilaterally including hip flexors, quadriceps, hamstrings, gastrocnemius, tibialis anterior, tibialis posterior, and Peroneii muscles. Toe extensors are normal and there is good bulk in the extensor digitorum brevis muscles bilaterally. The limbs have good tone without rigidity or spasticity. There is no atrophy n oted in the muscles. Muscle bulk is normal, there is no tenderness to palpation, no myotonia to percussion, and no fasciculations seen. Sensory examination is intact to touch and pin throughout all 4 limbs diffusely. Reflexes are 1/4 in the biceps, triceps, and brachioradialis tendons bilaterally. Reflexes were 2/4 in the quadriceps and Achilles tendons bilaterally. There is no clonus bilaterally. Toes are downgoing with plantar stimulation On the right and equivocal on the left. Peripheral pulses are present and of normal quality distally in all 4 limbs. There is no peripheral edema noted in the limbs. Results & Data Vital Signs (Past 12 Hours) Vital Signs Temp Pulse Pulse Resp BP BP Pulse Ox 01/27/23 07:44 65 15 91 01/27/23 03:33 36.6 C 85 16 127/86 91 01/27/23 03:25 60 14 93 01/26/23 23:00 01/27/23 00:00 57 L 01/26/23 22:30 37.4 C 12 144/94 H 93 01/26/23 23:00 01/26/23 22:30 12 93 01/26/23 22:30 144/94 H 01/26/23 22:20 17 90 01/26/23 22:20 127/78 01/26/23 22:10 16 92 01/26/23 22:10 151/83 H 01/26/23 22:00 14 92 01/26/23 22:00 132/85 01/26/23 21:50 13 93 01/26/23 21:50 154/89 H 01/26/23 21:41 152/74 H 01/26/23 21:41 19 91 01/26/23 21:40 21 93 01/26/23 21:30 13 92 01/26/23 21:30 161/84 H 01/26/23 21:20 16 92 01/26/23 21:20 156/85 H 01/26/23 21:12 18 01/26/23 21:10 79 15 95 01/26/23 21:00 64 17 94 01/26/23 20:50 61 17 93 01/26/23 22:45 Pulse Ox O2 Del Method O2 Del Method O2 Flow Rate 01/27/23 07:44 Nasal Cannula 1 01/27/23 03:33 Nasal Cannula 1 01/27/23 03:25 Nasal Cannula 1 01/26/23 23:00 Nasal Cannula 1 01/27/23 00:00 01/26/23 22:30 Nasal Cannula 2 01/26/23 23:00 91 Room Air 01/26/23 22:30 01/26/23 22:30 01/26/23 22:20 01/26/23 22:20 01/26/23 22:10 01/26/23 22:10 01/26/23 22:00 01/26/23 22:00 01/26/23 21:50 01/26/23 21:50 01/26/23 21:41 01/26/23 21:41 01/26/23 21:40 01/26/23 21:30 01/26/23 21:30 01/26/23 21:20 01/26/23 21:20 01/26/23 21:12 01/26/23 21:10 01/26/23 21:00 01/26/23 20:50 01/26/23 22:45 Room Air PG Care Time/CCT Total # of Minutes Spent Total Time Spent with Patient: Total time spent is greater than 50% in coordination of care (as documented) at patient's floor/unit and/or counseling patient: Coding Level of Care Code 31921 IN/OBS CONSULT LVL 5,80M Diagnoses TIA (transient ischemic attack) G45.9 Acute left hemiparesis G81.94 Time Spent (min) 80
[2023-01-27] MEDS ORDERED: ASPIRIN 81 MG ECTAB PO SCH (09:00)
[2023-01-27] MEDS ORDERED: FLUTICASONE/VILANTEROL 100/25MCG 14 PUFFS/INHALER INH SCH (09:00)
[2023-01-27] MEDS ORDERED: ATORVASTATIN 40 MG TAB PO SCH (09:00)
--- NOTE | 2023-01-27 10:36 | Pharmacy Report ---
- Date of Service January 27, 2023 - Pharmacy CVA/TIA Medication Review Medications to Prevent Stroke handout has been added to the patients discharge packet. Antiplatelet(s) * Aspirin 81mg daily Cholesterol * High intensity statin: atorvastatin 40 mg daily DVT Prophylaxis * SCD knee Therapeutic Anticoagulation * No history of Afib/Aflutter noted Type 2 Diabetes * Patient does not have T2DM
[2023-01-27] MEDS ORDERED: STROKE PATIENT DISCHARGE STA (11:26)
--- NOTE | 2023-01-27 11:33 | Discharge Summary ---
Date of Service January 27, 2023 Admission HPI Per Admitting Provider The patient is a 62-year-old male with a past medical history including COPD, anxiety with depression, presently incarcerated. He has a significant family history of vascular disease, with both heart attacks and strokes both sides of family, including mother and father. He presents to the emergency department with a cute onset of symptoms as noted above, with significant to near complete resolution by the time of the interview. Principal Diagnosis TIA Discharge Exam Patient is awake, unkempt appearing, alert and oriented 3, well developed and well nourished, normocephalic and atraumatic, lying in bed and in no acute distress. HEENT--PERRL, EOMI, mucous membranes and oropharynx dry. Neck--supple. No JVD. No bruits. Thyroid normal, trachea midline, no adenopathy. Heart--normal S1 and S2. No murmurs, rubs or gallops. Lungs--few coarse breath sounds bilaterally. No respiratory distress, no accessory muscle use. Abdomen--normal bowel sounds and soft. Nontender. Nondistended, no hernias or masses, no organomegaly. Extremities--no cyanosis or clubbing. No edema. Dermatologic--normal skin turgor, normal color, no abnormal lymph nodes, no rash. Neurologic--cranial nerves II through XII grossly intact. Rheumatologic--normal range of motion. Psychiatric--normal affect. Discharge Data Allergies Allergy/AdvReac Type Severity Reaction Status Date / Time Penicillins Allergy Unknown DIZZINESS Unverified 02/06/17 12:37 Consultations 01/26/23 20:51 ED Decision to Admit Stat 01/27/23 07:13 Consult Neurology Routine Ordered Studies 01/26/23 19:56 CT angio head w con Stat CT angio neck with con Stat CT head/brain wo con Stat 01/27/23 00:34 MR brain wo con Stat Hospital Course (1) Weakness on left side of face: Plan Chronic right frontal lobe infarct/acute but resolved TIA symptoms involving left-sided weakness and slurred speech- CT scan of head initially suggested small subacute right frontal lobe infarct, however, follow-up MRI notes this is chronic CTA of head notes bilateral cavernous ICA stenosis less than 50% Symptoms of left-sided weakness and slurred speech had improved significantly to almost resolved by the time of this admission The patient will be admitted to telemetry for serial cardiac enzymes, serial EKG's, cardiac rhythm monitoring and a 2-D echocardiogram with Dopplers. Patient given aspirin 324 mg Admit with stroke without tPA order set Strong family history of cardiovascular and cerebrovascular disease Distant history of tobacco use Permissive hypertension overnight CT angiography shows no significant stenoses. Recommendations: 1. continue 81 milligram aspirin tablet daily for stroke prevention. 2. Continue atorvastatin 40 milligrams. His baseline total cholesterol was 189. He does not need high-dose statins. 3. keep off cigarette smoking 4. increase activity as able. COPD exacerbation- CTA of neck notes moderately severe emphysema Continue Breo Ellipta and Ventolin HFA DuoNebs every 2 hours as needed Added spiriva as maintanence and azithromycin for COPD exacerbation Total Time Total Time Spent Total Time Spent (In Minutes): 32 Discharge Plan Discharge Items [facility] Reason For Visit: CVA, IMPROVING LEFT SIDE WEAKNESS/NUMBNESS/SLURRED Discharge Diagnosis: CVA Activity: Resume your previous activity Non-emergency contact: Primary Care Provider Call non-emergency contact if: you have any medication questions Follow-up/Referrals: [facility] [Primary Care Provider] - Diet: Heart Healthy Addtl Attending Provider Instructions: 1. continue 81 milligram aspirin tablet daily for stroke prevention. 2. Continue atorvastatin 40 milligrams. His baseline total cholesterol was 189. He does not need high-dose statins. 3. keep off cigarette smoking 4. increase activity as able. Pending Studies at Discharge: No Stand-Alone Forms: [employer], Medications to Prevent Stroke Skilled Items Patient informed of condition?: No Discharge Level of Care: Other Communicable Disease: No Discharge Prognosis: Stable Lines: None Urinary Catheter: No Medications and DC Order Prescriptions: New atorvastatin 40 mg Tablet 40 mg PO QAM Qty: 30 0RF aspirin 81 mg Tablet,Delayed Release (Dr/Ec) 81 mg PO QAM Qty: 30 0RF Spiriva Respimat 2.5 mcg/actuation mist 2 inh inhalation DAILY Qty: 4 0RF azithromycin 500 mg tablet See Rx Instructions .ROUTE .COMPLEX Qty: 3 0RF Rx Instructions: For 500 mg dose pack: take 500 mg once daily for 3 days Continued sertraline 25 mg Tablet 75 mg PO HS fluticasone propion-salmeterol [Advair Diskus] 100-50 mcg/dose Blister With Device 1 inh INHALATION BID albuterol sulfate 90 mcg/actuation HFA aerosol inhaler 3 puff INHALATION Q4 Discharge Orders: Discharge Order (Routine); Ordered 01/27/23 Ordered By: Shen Cruz/Other Patient Handouts: Prediabetes, 5 Steps for Eating Healthier Admission Data Admit Date/Time: 01/26/23 21:37 Attending Provider: Shen Garcia Admit Provider: Anselmo Gilliam Primary Care Provider: [facility] Other Providers: Anselmo Gilliam ; Igor Nails Other Interventions: Discharge Summary Assessment (RN) Last Done: 01/27/23 12:11 Coding Level of Care Code 74186 INP/OBS DISCH >30 MIN Diagnoses Weakness on left side of face R29.810
--- NOTE | 2023-01-27 16:35 | XCELERA ---
[id number] \\[id number]}[id number]
--- NOTE | 2023-01-28 23:06 | Electrocardiogram Report ---
Test Reason : Blood Pressure : / mmHG Vent. Rate : 063 BPM Atrial Rate : 063 BPM P-R Int : 136 ms QRS Dur : 080 ms QT Int : 412 ms P-R-T Axes : 021 052 053 degrees QTc Int : 421 ms Normal sinus rhythm Normal ECG When compared with ECG of 13-JAN-2023 11:32, No significant change was found Confirmed by Mitesh Infante ([id number]) on 01/28/2023 11:05:40 PM Referred By: [facility] Confirmed By:Mitesh Infante
--- NOTE | 2023-01-29 05:49 | Electrocardiogram Report ---
Test Reason : Blood Pressure : / mmHG Vent. Rate : 065 BPM Atrial Rate : 065 BPM P-R Int : 136 ms QRS Dur : 088 ms QT Int : 404 ms P-R-T Axes : 032 049 040 degrees QTc Int : 420 ms Normal sinus rhythm Normal ECG When compared with ECG of 26-JAN-2023 20:21, No significant change was found Confirmed by Mitesh Infante ([id number]) on 01/29/2023 5:49:06 AM Referred By: [facility] Confirmed By:Mitesh Infante
== END 2023-01-27 12:38 | DRG 69 ==
LOC: ED 19:53 → 1E 21:37 → SUATTDRO 21:37 → 1E 22:45

== ENCOUNTER 2023-01-28 15:40 | Inpatient (IN) ==
--- NOTE | 2023-01-28 15:51 | Emergency Department Note ---
Impression & Plan Generalized weakness, Gait instability, Ambulatory dysfunction, Chest pain ED Provider Note HISTORY OF PRESENT ILLNESS: Patient is a 62-year-old male presenting with chest pain and ambulatory dysfunction. Patient reports that at 14:15 he was showering at the longterm when he developed right arm weakness and garbled speech. He states that he alerted a guard and then developed substernal sharp chest pain. He reportedly had difficulty ambulating and had to be carried to the [facility]. His garbled speech and right upper extremity weakness has resolved on arrival to the ER, per the patient. He reports his chest pain has improved as well. He is not on any anticoagulation. Patient was seen 3 days ago in the emergency department for strokelike symptoms. He reportedly was very weak with slurred speech and left facial droop. He was noted to have a subacute infarct on his CT imaging and was not a candidate for TNKase at that time. ROS: as above PHYSICAL EXAM: Constitutional: Patient appears in no acute distress. HENT: Head: Normocephalic and atraumatic. Eyes: EOMI, PERRL Mouth/Throat: Mucous membranes moist. Neck: Trachea midline. Neck supple. Cardiovascular: RRR, No murmurs, rubs or gallops. Intact distal pulses. Pulmonary/Chest: No respiratory distress. Breath sounds clear and equal bilaterally. No wheezes or rales. No chest wall tenderness to palpation. Abdominal: Abdomen soft, no tenderness, rebound or guarding. Musculoskeletal: No edema, tenderness or deformity noted. Skin: Warm and dry. No rash, erythema, pallor or cyanosis Psychiatric: Appropriate mood and affect for situation. Neurological: Alert and keenly responsive. Slight left lower facial droop. Able to raise eyebrows, close eyes, smile, puff mouth, stick out tongue, move tongue left and right and raise palate symmetrically. Able to shrug shoulders. PERRLA. SILT to forehead below eye and at jawline, but patient reports decreased sensation on left face. Can hear soft nose bilaterally. Patient has slight drift in the right and left upper extremities. Has significant drift in the right lower extremity in which his leg hits the bed. Patient has limb ataxia in his bilateral upper extremities with [id number] testing. Reports decreased sensation to his right upper extremity and left lower extremity on sensation testing. NIHSS 7. MDM: - Vitals signs showed hypertension - History obtained via patient. Patient presents with chest pain and ambulatory dysfunction. He reports he was in the shower at the longterm at 1415 when he developed right arm weakness and garbled speech. He reportedly also had some's sharp substernal chest pain. He reportedly was having difficulties ambulating to the [facility] and had to be carried by staff. His garbled speech and right upper extremity weakness have resolved on arrival to the ER. He reports his chest pain is slightly improved. He is not on any anticoagulation other than aspirin - Chronic conditions affecting care: COPD - Differential diagnoses include, but are not limited to: CVA; intracranial hemorrhage; aortic dissection; acute coronary syndrome - Order placed for continuous cardiac monitoring. At this time, monitor showed rate of 65 bpm with normal sinus rhythm, per my interpretation. - External medical records reviewed. EMS run sheet reviewed. Patient was given 324 mg of aspirin in route. - EKG reviewed by myself showed normal sinus rhythm. Rate 70 bpm. QTc 421. No acute ischemic changes. - Laboratory workup interpreted by myself showed normal WBC; stable electrolytes other than slight hyponatremia (Na 132); normal troponin - CXR negative for pneumonia, per my interpretation. - CT head wo contrast negative for acute intracranial hemorrhage, per my interpretation. - CTA chest negative for dissection. - Patient was alerted as a stroke alert on my assessment in the emergency department. He had an NIH stroke scale of 7 given his bilateral arm drift and profound drift in his right lower extremity. Given that he is in the TNK window, telestroke was consulted. Discussed case with [facility] neurologist, Dr. Xiong at 16:27. She wanted to evaluate the patient via the camera. Patient did note received TNK within a timely window, given prolonged chart review and teleneurology use prolonged evaluation. Neurologist finished patient's evaluation at 170. She recommended a stat MRI of the brain. She noted the patient seemed to have a tremor in his upper extremities that could be concerning for possible cerebellar intention tremor. She recommended specific sequences on MRI imaging to expedite MRI. I discussed the sequences that the neurologist requested with the conveyor technician who then took the patient for MRI. I di scussed the case with the neurologist again at 1810 to let her know the MRI images were available. At 1816, she called back and reported that there was no new infarct present. TNK was not administered to the patient given the changing neurologic examination and eventually being outside the window. Teleneurology recommended further work-up for possible metabolic etiology for the patient's tremor and gait instability. - Patient is still unable to ambulate without significant assistance by nursing staff. - Discussion was had with drug abuse social worker about patient's case and need for admission. - Hospitalist consulted for admission - [facility] for further evaluation and management. I provided 63 minutes of critical care time to this patient's care outside of billable procedures. ASSESSMENT AND PLAN: Diagnosis: generalized weakness; gait instability; ambulatory dysfunction; chest pain Plan: admit Past Med/Surg History Medical History (Updated 01/28/23 @ 19:30 by Lexy Mtz MD) COPD (chronic obstructive pulmonary disease) Family history of heart attack Family history of stroke Surgical History H/O hernia repair S/P tonsillectomy Family History Mother , age 84 of heart disease Coronary heart disease Heart disease Breast cancer Father , age 35 of a massive heart attack Myocardial infarction Social History Smoking Status: Former smoker Tobacco Type: Cigarettes Age Started Using Tobacco: 12; Age Quit Using Tobacco: 62; packs per day: 2; Second Hand Exposure: No; Do You Dip or Chew Tobacco: No; Hx Alcohol Use: Yes Alcohol type: beer Alcohol Intake Frequency: Monthly or Less Hx Substance Use: Yes Preferred Language: Chilean Communication Ability: Effective Char Filter Operator Helper Required: No Beliefs That Will Affect Care: None Current Living Situation: Other Current Living Situation Comment: Incarcerated current occupational status: unemployed 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 Feels Safe at Home: Yes Assistive Devices: Denture - Upper Allergies Allergies Allergy/AdvReac Type Severity Reaction Status Date / Time Penicillins AdvReac Intermediate DIZZINESS Verified 01/28/23 16:40 Home Meds Home Medications Medication Instructions Recorded Confirmed albuterol sulfate 90 mcg/actuation 3 puff inhalation Q4H 01/26/23 01/28/23 aerosol inhaler fluticasone 100 mcg-salmeterol 50 1 inh inhalation BID 01/26/23 01/28/23 mcg/dose blistr powdr for inhalation (Advair Diskus) sertraline 25 mg tablet 75 mg PO HS 01/26/23 01/28/23 albuterol sulfate 2.5 mg/3 mL 2.5 mg inhalation QID PRN 01/28/23 01/28/23 (0.083 %) solution for nebulization Shortness Of Breath Or Wheezing atorvastatin 40 mg tablet 40 mg PO HS 01/28/23 01/28/23 azithromycin 500 mg tablet 250 mg PO DAILY 01/28/23 01/28/23 prednisone 10 mg tablet 10 mg PO DIRECTED 01/28/23 01/28/23 Previous Rx's Medication Instructions Recorded aspirin 81 mg tablet,delayed 81 mg PO QAM #30 tabs 01/27/23 release tiotropium bromide 2.5 2 inh inhalation DAILY #4 grams 01/27/23 mcg/actuation mist for inhalation (Spiriva Respimat) Results & Data (ED) Vital Signs Vital Signs - 24 hr 01/28/23 15:46 01/28/23 15:46 01/28/23 15:46 Temperature 36.5 C Temperature Source Temporal Artery Scan Pulse Rate 77 80 Pulse Rate [Apical] Respiratory Rate 18 18 Respiratory Effort / Characteristics Non-Labored Respiratory Depth Normal Respiratory Pattern Regular Blood Pressure 155/105 H Blood Pressure [Right Arm] Blood Pressure Mean 121 Blood Pressure Mean [Right Arm] Pulse Oximetry 94 94 94 Oxygen Delivery Method Nasal Cannula Nasal Cannula Nasal Cannula Oxygen Flow Rate 2 2 2 Sepsis Recent Fever Within 48 Hours No Sepsis New/Unexplained Change in Mental Status N/A Sepsis Action Taken by Nursing No Action Required 01/28/23 16:16 01/28/23 16:46 01/28/23 18:00 Temperature Temperature Source Pulse Rate 71 Pulse Rate [Apical] 77 79 Respiratory Rate 18 18 Respiratory Effort / Characteristics Non-Labored Non-Labored Respiratory Depth Normal Normal Respiratory Pattern Regular Regular Blood Pressure Blood Pressure [Right Arm] 141/94 H 138/88 Blood Pressure Mean Blood Pressure Mean [Right Arm] 109 104 Pulse Oximetry 94 98 Oxygen Delivery Method Nasal Cannula Room Air Oxygen Flow Rate 2 Sepsis Recent Fever Within 48 Hours Sepsis New/Unexplained Change in Mental Status Sepsis Action Taken by Nursing Laboratory Data 01/28/23 16:08 01/28/23 16:08 Lab Results 01/28/23 01/28/23 01/28/23 Range/Units 16:08 16:08 16:08 WBC 8.91 (4.8-10.8) K/ul RBC 4.59 L (4.70-6.10) M/uL Hgb 14.7 (14.0-18.0) g/dl POC Hgb (14.0-18.0) g/dl Hct 43.4 (42.0-52.0) % POC Hct (42-52) % MCV 94.6 (80.0-100.0) fL MCH 32.0 (25.0-34.0) pg MCHC 33.9 (32.0-36.0) g/dL RDW Std Deviation 44.7 (36.4-46.3) fL RDW Coeff of Jinny 12.9 (11.5-14.5) % Plt Count 204 (130-400) K/uL MPV 10.1 (9.4-12.4) fL PT 11.4 (9.0-12.0) Seconds INR 1.0 (0.9-1.1) APTT 28.1 (21.0-31.0) Seconds PTT Ratio 1.0 POC Sodium (135-144) mmol/L Sodium 132 L D (136-145) mmol/L POC Potassium (3.3-5.0) mmol/L Potassium 4.3 (3.5-5.1) mmol/L POC Chloride (101-112) mmol/L Chloride 101 (98-107) mmol/L Carbon Dioxide 23 (21-32) mmol/L POC Total CO2 (24-31) mmol/L Anion Gap 8 (3-11) POC Anion Gap (16-25) mmol/L POC BUN (7-18) mg/dl BUN 24 H (6-23) mg/dl Creatinine 1.00 (0.6-1.4) mg/dl POC Creatinine (0.6-1.3) mg/dl Est Cr Clr Drug Dosing 67.2 ml/min Est GFR ( Amer) 93.7 ml/min Est GFR (Non-Af Amer) 80.9 ml/min BUN/Creatinine Ratio 24.0 H (10-20) Glucose 175 H (70-99(Fasting)) mg/dl POC Glucose (other) (70-99) mg/dl Calcium 9.1 (8.6-10.3) mg/dl POC Ioniz Calcium Alex (1.12-1.32) mmol/l Magnesium 1.9 (1.7-2.4) mg/dl Total Bilirubin 0.5 (0.2-1.0) mg/dl AST 32 (13-39) U/L ALT 48 (7-52) U/L Alkaline Phosphatase 71 (34-104) U/L Troponin I High Sens 2.7 (0-20) pg/ml Total Protein 6.8 (6.0-8.3) gm/dl Albumin 3.8 (3.4-5.0) gm/dl Globulin 3.0 (2.5-4.0) gm/dl Albumin/Globulin Ratio 1.3 (0.9-2) SARS-CoV-2, RNA, NAAT (NEGATIVE) 01/28/23 01/28/23 Range/Units 16:19 18:52 WBC (4.8-10.8) K/ul RBC (4.70-6.10) M/uL Hgb (14.0-18.0) g/dl POC Hgb 15.6 (14.0-18.0) g/dl Hct (42.0-52.0) % POC Hct 46 (42-52) % MCV (80.0-100.0) fL MCH (25.0-34.0) pg MCHC (32.0-36.0) g/dL RDW Std Deviation (36.4-46.3) fL RDW Coeff of Jinny (11.5-14.5) % Plt Count (130-400) K/uL MPV (9.4-12.4) fL PT (9.0-12.0) Seconds INR (0.9-1.1) APTT (21.0-31.0) Seconds PTT Ratio POC Sodium 135 (135-144) mmol/L Sodium (136-145) mmol/L POC Potassium 4.9 (3.3-5.0) mmol/L Potassium (3.5-5.1) mmol/L POC Chloride 101 (101-112) mmol/L Chloride (98-107) mmol/L Carbon Dioxide (21-32) mmol/L POC Total CO2 21 L (24-31) mmol/L Anion Gap (3-11) POC Anion Gap 20.0 (16-25) mmol/L POC BUN 29 H (7-18) mg/dl BUN (6-23) mg/dl Creatinine (0.6-1.4) mg/dl POC Creatinine 0.9 (0.6-1.3) mg/dl Est Cr Clr Drug Dosing ml/min Est GFR ( Amer) ml/min Est GFR (Non-Af Amer) ml/min BUN/Creatinine Ratio (10-20) Glucose (70-99(Fasting)) mg/dl POC Glucose (other) 175 H (70-99) mg/dl Calcium (8.6-10.3) mg/dl POC Ioniz Calcium Alex 1.12 (1.12-1.32) mmol/l Magnesium (1.7-2.4) mg/dl Total Bilirubin (0.2-1.0) mg/dl AST (13-39) U/L ALT (7-52) U/L Alkaline Phosphatase (34-104) U/L Troponin I High Sens (0-20) pg/ml Total Protein (6.0-8.3) gm/dl Albumin (3.4-5.0) gm/dl Globulin (2.5-4.0) gm/dl Albumin/Globulin Ratio (0.9-2) SARS-CoV-2, RNA, NAAT NEGATIVE (NEGATIVE) Administered Medications Discontinued Medications Ioversol (Ioversol 350 Mg 125ml Prefilled Syringe) 118 ml IV ONCE ONE Stop: 01/28/23 15:53 Last Admin: 01/28/23 15:52 Dose: 118 ml Documented By: ANGEL Imaging Data Radiologist's Impression: Chest X-Ray 01/28/23 15:46 XR chest 1V portable CLINICAL HISTORY: stroke alert COMPARISON STUDY: Chest CT performed earlier today. Chest radiograph January 26, 2023. FINDINGS: Emphysema is again noted, including a large right apical bulla. Interstitial thickening is likely chronic. Lung volumes are normal. Lungs are clear. There is no pneumothorax or pleural effusion. Cardiac size is normal. Mediastinal contours are normal. There is no evidence for pulmonary edema. IMPRESSION: No acute cardiopulmonary findings. Emphysema. ACT 112: Negative or not required by law. Electronically signed by: Lane Sagastume M.D. 01/28/2023 5:[address] 01/28/23 15:46 CT OF THE HEAD WITHOUT CONTRAST CLINICAL HISTORY: Neuro deficit, acute, stroke suspected. Ambulatory dysfunction. COMPARISON STUDY: Head CT January 26, 2023. MRI of the brain January 27, 2023. TECHNIQUE: Helical axial images of the head were obtained without IV contrast. Automated exposure control was utilized for the study. A dose lowering technique was utilized adhering to the principles of ALARA. FINDINGS: No acute intracranial hemorrhage, midline shift or mass effect is present. Encephalomalacia measuring 2.8 x 1.9 cm within the right frontal lobe suggests an old infarct. This is unchanged. The ventricular system is unremarkable. The basal cisterns are patent. No extra-axial collections are present. There are no findings to suggest acute dural sinus thrombosis or acute territorial infarct. No significant calvarial abnormalities are present. Vis ualized portions of the sinuses and mastoid air cells are clear. IMPRESSION: No acute intracranial findings. No change in appearance of the brain. Old right frontal lobe infarct. ACT 112: Negative or not required by law. Electronically signed by: Lane Sagsatume M.D. 01/28/2023 4:06 PM Head CTA 01/28/23 15:46 CT angio head w con CLINICAL HISTORY: 62 years-old Male with ambulatory dysfunction; RUE dysmetria. Acute chip like symptoms COMPARISON STUDY: Head CT of same day TECHNIQUE: Following the IV administration of 118 cc of Optiray, CT angiogram of the brain was performed from the skull base to the vertex. Images are reviewed in the axial, sagittal, and coronal planes. 3-D MIPS images are created and assessed. IV contrast was administered without complication. All measurements were obtained according to NASCET criteria. A dose lowering technique was utilized adhering to the principles of ALARA. FINDINGS: CT ANGIOGRAM OF THE BRAIN: The imaged bilateral internal carotid arteries are patent. The bilateral anterior and middle cerebral arteries are also patent. The vertebrobasilar system and posterior cerebral arteries are widely patent. There is no aneurysm, high-grade stenosis, or proximal branch occlusion identified. Dural sinuses appe ar patent. Chronic right frontal lobe infarct. IMPRESSION: Unremarkable CTA of the head. ACT 112: Negative or not required by law. The above report was generated using voice recognition software. It may contain grammatical, syntax or spelling errors. Electronically signed by: En Khan M.D. 01/28/2023 4:19 PM Neck CTA 01/28/23 15:46 CT ANGIOGRAPHY OF THE NECK WITH CONTRAST CLINICAL HISTORY: Ambulatory dysfunction; RUE dysmetria. Possible stroke. COMPARISON STUDY: No previous studies for comparison. Technique: CT angiography of the carotid and vertebral arteries was obtained using Optiray and 3D reconstruction on an independent workstation. NASCET criteria was utilized. Automated exposure control was utilized for the study. A dose lowering technique was utilized adhering to the principles of ALARA. Findings: Emphysema within the lung apices including a large right apical bulla is noted. There is moderate stenosis at the origin of the right vertebral artery. The left vertebral artery is dominant. There is mild plaque at the origin of the left vertebral artery without significant stenosis. There is moderate plaque within the proximal left subclavian artery without stenosis. The bilateral common carotid and cervical internal carotid arteries are patent. There is moderate plaque within the proximal right internal carotid artery without stenosis. Mild plaque within the proximal left internal carotid artery is noted without stenosis. There is no aneurysm within the neck. No dissection. IMPRESSION: 1. No stenoses within the bilateral common carotid or cervical internal carotid arteries. Mild to moderate atherosclerotic plaque within the proximal bilateral internal carotid arteries. 2. Moderate stenosis at the origin of the right vertebral artery. Patent, dominant left vertebral artery. ACT 112: Negative or not required by law. Electronically signed by: Lane Sagastume M.D. 01/28/2023 4:12 PM Chest CTA 01/28/23 15:47 CT ANGIOGRAPHY OF THE CHEST DISSECTION PROTOCOL CLINICAL HISTORY: Chest pain; neuro symptoms evaluate for dissection. COMPARISON STUDY: Chest CT January 13, 2023 and chest radiograph January 26, 2023. TECHNIQUE: Before and following the IV administration of 118 mL of Optiray, helical axial images of the chest were obtained. Maximal intensity projections and sagittal and coronal reformats were viewed on an independent 3D workstation. IV contrast was administered without complication. Automated exposure control was utilized for the study. A dose lowering technique was utilized adhering to the principles of ALARA. CT DOSE: 1815.16 mGy.cm FINDINGS: The caliber of the thoracic aorta is normal. There is no intramural hematoma or thoracic aortic dissection. Moderate coronary artery calcification is present. Size of the heart is normal. There is no pericardial effusion. There is no thoracic lymphadenopathy. Upper lobe predominant emphysema is present. Central airways are patent. No pneumothorax or pleural effusion is present. There is no consolidation to suggest pneumonia. 7 mm irregular groundglass right upper lobe nodule remains unchanged. Subpleural opacities favor atelectasis. IMPRESSION: 1. No thoracic aortic dissection. 2. No acute intrathoracic findings. 3. Emphysema. 4. 7 mm irregular groundglass nodule within the right upper lobe which is unchanged since prior chest CT. This is indeterminate and a chest CT in 6 months is recommended. ACT 112: Negative or not required by law. Electronically signed by: Lane Sagastume M.D. 01/28/2023 4:36 PM Brain MRI 01/28/23 17:16 MRI OF THE BRAIN WITHOUT CONTRAST CLINICAL HISTORY: Stroke-like symptoms. COMPARISON STUDY: MRI of the brain January 27, [address] and CTA of the head performed earlier today. TECHNIQUE: Utilizing a 1.5 Griselda magnet and dedicated coil, multiplanar, multiecho imaging of the brain was performed without IV contrast. Dedicated stroke protocol MRI was performed as ordered. FINDINGS: There are no foci of restricted diffusion to suggest acute infarct. No acute intracranial hemorrhage, midline shift or mass effect is present. Ventricular system is unremarkable. Basal cisterns are patent. There are no extra-axial collections. Focus of encephalomalacia within the right frontal lobe remains unchanged. A few white matter T2 hyperintense foci suggest mild small vessel disease. Calvarial signal is within normal limits. Flow-voids for the major intracranial vessels are present. IMPRESSION: 1. No acute intracranial findings. 2. No change in a focus of encephalomalacia within the right frontal lobe suggestive of an old infarct. ACT 112: Negative or not required by law. Electronically signed by: Lane Sagastume M.D. 01/28/2023 6:13 PM Discharge Plan Visit Data Chief Complaint: Stroke/CVA Symptoms ED Provider: Lexy Mtz Discharge Problem: Generalized weakness, Gait instability, Ambulatory dysfunction, Chest pain Forms Stand Alone Forms: [employer] Prescriptions Prescriptions: No Action prednisone 10 mg Tablet 10 mg PO DIRECTED Rx Instructions: STARTED 01/28/23 FOR 3 DAY, 30 MG X 1 DAY, 20 MG X 1 DAY, 10 MG X 1 DAY. albuterol sulfate 2.5 mg /3 mL (0.083 %) Solution For Nebulization 2.5 mg INHALATION QID PRN (Reason: Shortness Of Breath Or Wheezing) atorvastatin 40 mg tablet 40 mg PO HS azithromycin 500 mg tablet 250 mg PO DAILY Rx Instructions: STARTED 01/28/23 FOR 5 DAYS. sertraline 25 mg Tablet 75 mg PO HS fluticasone propion-salmeterol [Advair Diskus] 100-50 mcg/dose Blister With Device 1 inh INHALATION BID albuterol sulfate 90 mcg/actuation HFA aerosol inhaler 3 puff INHALATION Q4H aspirin 81 mg Tablet,Delayed Release (Dr/Ec) 81 mg PO QAM Qty: 30 0RF Spiriva Respimat 2.5 mcg/actuation mist 2 inh inhalation DAILY Qty: 4 0RF Referrals Referrals: [facility] [Primary Care Provider] -
[2023-01-28] MEDS ORDERED: IOVERSOL 350 MG 125mL Prefilled Syringe IV ONE (15:52)
--- NOTE | 2023-01-28 16:08 | CT Scan Report ---
CT OF THE HEAD WITHOUT CONTRAST CLINICAL HISTORY: Neuro deficit, acute, stroke suspected. Ambulatory dysfunction. COMPARISON STUDY: Head CT January 26, 2023. MRI of the brain January 27, 2023. TECHNIQUE: Helical axial images of the head were obtained without IV contrast. Automated exposure con trol was utilized for the study. A dose lowering technique was utilized adhering to the principles o f ALARA. FINDINGS: No acute intracranial hemorrhage, midline shift or mass effect is present. Encephalomalacia measuring 2.8 x 1.9 cm within the right frontal lobe suggests an old infarct. This is unchanged. The ventricular system is unremarkable. The basal cisterns are patent. No extra-axial collections are pr esent. There are no findings to suggest acute dural sinus thrombosis or acute territorial infarct. No significant calvarial abnormalities are present. Visualized portions of the sinuses and mastoid air cells are clear. IMPRESSION: No acute intracranial findings. No change in appearance of the brain. Old right frontal lobe infarct. ACT 112: Negative or not required by law. Electronically signed by: Lane Sagastume M.D. 01/28/2023 4:06 PM
--- NOTE | 2023-01-28 16:14 | CT Scan Report ---
CT ANGIOGRAPHY OF THE NECK WITH CONTRAST CLINICAL HISTORY: Ambulatory dysfunction; RUE dysmetria. Possible stroke. COMPARISON STUDY: No previous studies for comparison. Technique: CT angiography of the carotid and vertebral arteries was obtained using Optiray and 3D rec onstruction on an independent workstation. NASCET criteria was utilized. Automated exposure control was utilized for the study. A dose lowering technique was utilized adhering to the principles of ALA RA. Findings: Emphysema within the lung apices including a large right apical bulla is noted. There is mo derate stenosis at the origin of the right vertebral artery. The left vertebral artery is dominant. T here is mild plaque at the origin of the left vertebral artery without significant stenosis. There is moderate plaque within the proximal left subclavian artery without stenosis. The bilateral common ca rotid and cervical internal carotid arteries are patent. There is moderate plaque within the proximal right internal carotid artery without stenosis. Mild plaque within the proximal left internal caroti d artery is noted without stenosis. There is no aneurysm within the neck. No dissection. IMPRESSION: 1. No stenoses within the bilateral common carotid or cervical internal carotid arteries. Mild to mod erate atherosclerotic plaque within the proximal bilateral internal carotid arteries. 2. Moderate stenosis at the origin of the right vertebral artery. Patent, dominant left vertebral art wong. ACT 112: Negative or not required by law. Electronically signed by: Lane Sagastume M.D. 01/28/2023 4:12 PM
--- NOTE | 2023-01-28 16:20 | CT Scan Report ---
CT angio head w con CLINICAL HISTORY: 62 years-old Male with ambulatory dysfunction; RUE dysmetria. Acute chip like sy mptoms COMPARISON STUDY: Head CT of same day TECHNIQUE: Following the IV administration of 118 cc of Optiray, CT angiogram of the brain was perfor med from the skull base to the vertex. Images are reviewed in the axial, sagittal, and coronal planes . 3-D MIPS images are created and assessed. IV contrast was administered without complication. All me asurements were obtained according to NASCET criteria. A dose lowering technique was utilized adherin g to the principles of ALARA. FINDINGS: CT ANGIOGRAM OF THE BRAIN: The imaged bilateral internal carotid arteries are patent. The bilateral anterior and middle cerebral arteries are also patent. The vertebrobasilar system and posterior cerebral arteries are widely walden nt. There is no aneurysm, high-grade stenosis, or proximal branch occlusion identified. Dural sinuses appear patent. Chronic right frontal lobe infarct. IMPRESSION: Unremarkable CTA of the head. ACT 112: Negative or not required by law. The above report was generated using voice recognition software. It may contain grammatical, syntax o r spelling errors. Electronically signed by: En Khan M.D. 01/28/2023 4:19 PM
[2023-01-28 16:35] LABS: iSTAT Creatinine 0.9 mg/dl (0.6-1.3); iSTAT Hemoglobin 15.6 g/dl (14.0-18.0); iSTAT Ionized Calcium 1.12 mmol/l (1.12-1.32); iSTAT Potassium 4.9 mmol/L (3.3-5.0)
--- NOTE | 2023-01-28 16:38 | CT Scan Report ---
CT ANGIOGRAPHY OF THE CHEST DISSECTION PROTOCOL CLINICAL HISTORY: Chest pain; neuro symptoms evaluate for dissection. COMPARISON STUDY: Chest CT January 13, 2023 and chest radiograph January 26, 2023. TECHNIQUE: Before and following the IV administration of 118 mL of Optiray, helical axial images of t he chest were obtained. Maximal intensity projections and sagittal and coronal reformats were viewed on an independent 3D workstation. IV contrast was administered without complication. Automated exp osure control was utilized for the study. A dose lowering technique was utilized adhering to the [facility] analy TAPIA. CT DOSE: 1815.16 mGy.cm FINDINGS: The caliber of the thoracic aorta is normal. There is no intramural hematoma or thoracic a ortic dissection. Moderate coronary artery calcification is present. Size of the heart is normal. The re is no pericardial effusion. There is no thoracic lymphadenopathy. Upper lobe predominant emphysema is present. Central airways are patent. No pneumothorax or pleural effusion is present. There is no consolidation to suggest pneumonia. 7 mm irregular groundglass right upper lobe nodule remains unchan ged. Subpleural opacities favor atelectasis. IMPRESSION: 1. No thoracic aortic dissection. 2. No acute intrathoracic findings. 3. Emphysema. 4. 7 mm irregular groundglass nodule within the right upper lobe which is unchanged since prior chest CT. This is indeterminate and a chest CT in 6 months is recommended. ACT 112: Negative or not required by law. Electronically signed by: Lane Sagastume M.D. 01/28/2023 4:36 PM
[2023-01-28 16:53] LABS: Hematocrit (blood only) 43.4 % (42.0-52.0); Hemoglobin 14.7 g/dl (14.0-18.0); Mean Corpuscular Hgb Conc 33.9 g/dL (32.0-36.0); Mean Corpuscular Volume 94.6 fL (80.0-100.0); Mean Platelet Volume 10.1 fL (9.4-12.4); Platelet Count 204 K/uL (130-400); RDW Coefficient of Variation 12.9 % (11.5-14.5); RDW Standard Deviation 44.7 fL (36.4-46.3); Red Blood Count 4.59 M/uL (4.70-6.10); White Blood Count 8.91 K/ul (4.8-10.8)
[2023-01-28 17:09] LABS: Albumin Globulin Ratio 1.3 (0.9-2); Albumin Level 3.8 gm/dl (3.4-5.0); Bilirubin,Total 0.5 mg/dl (0.2-1.0); Calcium 9.1 mg/dl (8.6-10.3); Creatinine Clr Calc Pharmacy 67.2 ml/min; Est GFR (African American) 93.7 ml/min; Est GFR (Non-African American) 80.9 ml/min; Magnesium 1.9 mg/dl (1.7-2.4); Potassium 4.3 mmol/L (3.5-5.1); Total Protein 6.8 gm/dl (6.0-8.3)
[2023-01-28 17:14] LABS: Troponin I High Sensitivity 2.7 pg/ml (0-20)
[2023-01-28 17:23] LABS: Partial Thromboplastin Time 28.1 Seconds (21.0-31.0); Prothrombin Time 11.4 Seconds (9.0-12.0)
--- NOTE | 2023-01-28 17:46 | XRay Report ---
XR chest 1V portable CLINICAL HISTORY: stroke alert COMPARISON STUDY: Chest CT performed earlier today. Chest radiograph January 26, 2023. FINDINGS: Emphysema is again noted, including a large right apical bulla. Interstitial thickening is likely chronic. Lung volumes are normal. Lungs are clear. There is no pneumothorax or pleural effusio n. Cardiac size is normal. Mediastinal contours are normal. There is no evidence for pulmonary edema. IMPRESSION: No acute cardiopulmonary findings. Emphysema. ACT 112: Negative or not required by law. Electronically signed by: Lane Sagastume M.D. 01/28/2023 5:45 PM
--- NOTE | 2023-01-28 18:16 | Magnetic Resonance Report ---
MRI OF THE BRAIN WITHOUT CONTRAST CLINICAL HISTORY: Stroke-like symptoms. COMPARISON STUDY: MRI of the brain January 27, [address] and CTA of the head performed earlier t andi. TECHNIQUE: Utilizing a 1.5 Griselda magnet and dedicated coil, multiplanar, multiecho imaging of the bra in was performed without IV contrast. Dedicated stroke protocol MRI was performed as ordered. FINDINGS: There are no foci of restricted diffusion to suggest acute infarct. No acute intracranial h emorrhage, midline shift or mass effect is present. Ventricular system is unremarkable. Basal cistern s are patent. There are no extra-axial collections. Focus of encephalomalacia within the right fronta l lobe remains unchanged. A few white matter T2 hyperintense foci suggest mild small vessel disease. Calvarial signal is within normal limits. Flow-voids for the major intracranial vessels are present. IMPRESSION: 1. No acute intracranial findings. 2. No change in a focus of encephalomalacia within the right frontal lobe suggestive of an old infarc t. ACT 112: Negative or not required by law. Electronically signed by: Lane Sagastume M.D. 01/28/2023 6:13 PM
--- NOTE | 2023-01-28 19:27 | History & Physical Report ---
Date of Service January 28, 2023 Assessment & Plan (1) COPD (chronic obstructive pulmonary disease): Plan: His breathing seems to be COPD relatedgiven that he coughed up a little bit of blood, its probably another exacerbationthere have certainly been several respiratory illnesses going around. No clear pneumonia, escalate steroids given that he is already on p.o. prednisone, continue azithromycin, continue inhalersescalate his Advair to 500/50. Outpatient follow-up of pulmonary nodulealthough I doubt his hemoptysis is really malignant hemoptysis more likely infectious, but obviously do not want to leave the nodule lost to follow- up. It would be nice to have spirometry, as he shows significant stigmata both on physical exam and CT scan that he likely has fairly severe airflow obstruction. (2) Neck muscle spasm: Plan: His neck pain as well as his head paresthesias seem to be related to neck muscle spasm, and predominantly compression of his greater occipital nerve. That would not explain the facial paresthesiaswe will follow them closely, and his neurologic work-up was negative. OMT done, 4 g magnesium IV, Valium at bedtime, scheduled Tylenol, diclofenac gel (3) Somatic dysfunction of chest wall: Plan: OMT as above (4) Somatic dysfunction of cervical region: Plan: OMT as above (5) Vertebral artery disease: Plan: secondary risk reduction/med management (6) Cerebrovascular disease: Plan: secondary risk reduction/med management (7) DVT prophylaxis: Plan: Lovenox History of Present Illness Chief Complaint: multiple chief complaintspredominantly breathing difficulty and neck pain Primary Care Provider: [facility] very pleasant 62-year-old male just discharged yesterday after TIAnotes that he was back to the correction in the shower and had a coughing fit and some nosebleed or coughed up some blood, and felt very weak. Also separately notes that he has a lot of neck pain on the left side that does not seem to radiate, although he does have tingling up and around the left side of his head and a little bit across his face. 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 Allergies Allergy/AdvReac Type Severity Reaction Status Date / Time Penicillins AdvReac Intermediate DIZZINESS Verified 01/28/23 16:40 Home Medications Medication Instructions Recorded Confirmed Type albuterol sulfate 90 mcg/actuation 3 puff inhalation Q4H 01/26/23 01/28/23 History aerosol inhaler fluticasone 100 mcg-salmeterol 50 1 inh inhalation BID 01/26/23 01/28/23 History mcg/dose blistr powdr for inhalation (Advair Diskus) sertraline 25 mg tablet 75 mg PO HS 01/26/23 01/28/23 History aspirin 81 mg tablet,delayed 81 mg PO QAM #30 tabs 01/27/23 01/28/23 Rx release tiotropium bromide 2.5 2 inh inhalation DAILY #4 grams 01/27/23 01/28/23 Rx mcg/actuation mist for inhalation (Spiriva Respimat) albuterol sulfate 2.5 mg/3 mL 2.5 mg inhalation QID PRN 01/28/23 01/28/23 History (0.083 %) solution for nebulization Shortness Of Breath Or Wheezing atorvastatin 40 mg tablet 40 mg PO HS 01/28/23 01/28/23 History azithromycin 500 mg tablet 250 mg PO DAILY 01/28/23 01/28/23 History prednisone 10 mg tablet 10 mg PO DIRECTED 01/28/23 01/28/23 History Past Med/Surg History Medical History (Updated 01/28/23 @ 19:25 by Rodger Durbin DO) COPD (chronic obstructive pulmonary disease) Family history of heart attack Family history of stroke Surgical History H/O hernia repair S/P tonsillectomy Family History Mother , age 84 of heart disease Coronary heart disease Heart disease Breast cancer Father , age 35 of a massive heart attack Myocardial infarction Social History Smoking Status: Former smoker Tobacco Type: Cigarettes Age Started Using Tobacco: 12; Age Quit Using Tobacco: 62; packs per day: 2; Second Hand Exposure: No; Do You Dip or Chew Tobacco: No; Hx Alcohol Use: Yes Alcohol type: beer Alcohol Intake Frequency: Monthly or Less Hx Substance Use: Yes Preferred Language: Nigerien Communication Ability: Effective Slack Line Yarder Required: No Beliefs That Will Affect Care: None Current Living Situation: Other Current Living Situation Comment: Incarcerated current occupational status: unemployed 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 HEENT normocephalic atraumatic mucous membranes moist, musculoskeletal/osteopathic shows left sided C-spine paraspinals and levator Scap regional muscles as well as suboccipitals to be high tone very tender decreased range of motiondirect myofascial and inhibitory pressure with mild change in tissue texture, patient tolerated well; musculoskeletal also shows left sided ribs to be decreased range of motionbalanced ligamentous tension with mild tissue texture improvementpatient tolerated well. Lungs are diminished throughout faint bibasilar Rales that seem most consistent with atelectasis, no accessory muscle use no rhonchi no wheezes. Abdomen is soft nondistended nontender no masses organomegaly. Extremities without sinus clubbing or edema no calf tenderness. Neuro without focal deficits. Skin without rashes pallor or icterus. CBC, CMP, MRI brain, CT angio, CT chest, chest x-ray, EKG, prior visit neuro consult and discharge summary all reviewed. Results & Data Results & Data Vital Signs (Past 12 Hours) Vital Signs Temp Pulse Pulse Resp BP BP Pulse Ox 01/28/23 18:00 79 18 138/88 98 01/28/23 16:46 77 18 141/94 H 94 01/28/23 16:16 71 01/28/23 15:46 80 18 94 01/28/23 15:46 94 01/28/23 15:46 97.7 F 77 18 155/105 H 94 O2 Del Method O2 Flow Rate 01/28/23 18:00 Room Air 01/28/23 16:46 Nasal Cannula 2 01/28/23 16:16 01/28/23 15:46 Nasal Cannula 2 01/28/23 15:46 Nasal Cannula 2 01/28/23 15:46 Nasal Cannula 2 Code Status & VTE Plan VTE Prophylaxis Plan VTE Prophylaxis will be ordered: Yes PG Care Time/CCT Total # of Minutes Spent Total Time Spent with Patient: Total time spent is greater than 50% in coordination of care (as documented) at patient's floor/unit and/or counseling patient: Coding Level of Care Code 37501 INT INP/OBS CARE Diagnoses COPD (chronic obstructive pulmonary disease) J44.9 Neck muscle spasm M62.838 Somatic dysfunction of chest wall M99.08 Somatic dysfunction of cervical region M99.01 Vertebral artery disease I77.9 Cerebrovascular disease I67.9 DVT prophylaxis Z29.9 CPT Codes Musculoskeletal - Musculoskeletal: [address] Tr 1-2 Body regions ([id number])
[2023-01-28] MEDS ORDERED: ATORVASTATIN 40 MG TAB PO SCH (22:10)
[2023-01-28] MEDS ORDERED: ONDANSETRON INJ 2 MG/ML 2 ML VIAL IV PRN (22:10)
[2023-01-28] MEDS ORDERED: methylPREDNISolone 125 MG/2 ML VIAL IV STA (22:10)
[2023-01-28] MEDS ORDERED: POLYETHYLENE (MIRALAX) 17 GM PACK PO PRN (22:10)
[2023-01-28] MEDS ORDERED: diazePAM 5 MG TABLET PO SCH (22:10)
[2023-01-28] MEDS ORDERED: MAGNESIUM HYDROXIDE SUSP 30 ML UDC PO PRN (22:10)
[2023-01-28] MEDS ORDERED: ALUMINUM/MAGNESIUM SUSP 30 ML UDC PO PRN (22:10)
[2023-01-28] MEDS: ACETAMINOPHEN 325 MG TAB PO SCH (23:16)
[2023-01-28] MEDS: SERTRALINE HCL 50 MG TABLET PO SCH (23:17)
[2023-01-28] MEDS: DICLOFENAC SOD 1% GEL 100 GM TUBE EXT SCH (23:19)
[2023-01-28] MEDS: FLUTICASONE PROPIONATE NA SPR 16 GM BTL SCH (23:20)
[2023-01-28] MEDS: MAGNESIUM SULFATE / D5W 1 GM/100 ML BAG IV SCH (23:24)
[2023-01-28] MEDS: ENOXAPARIN INJ 40 MG/0.4 ML SYR SQ SCH (23:42)
[2023-01-29] MEDS: ALBUTEROL HFA 8 GM INHALER INH SCH ×8 (00:23→22:49)
[2023-01-29] MEDS: MAGNESIUM SULFATE / D5W 1 GM/100 ML BAG IV SCH ×5 (01:32→20:32)
[2023-01-29] MEDS: ASPIRIN 81 MG ECTAB PO SCH (07:37)
[2023-01-29] MEDS: AZITHROMYCIN 250 MG TAB PO SCH (07:38)
[2023-01-29] MEDS: ACETAMINOPHEN 325 MG TAB PO SCH ×3 (07:38→20:33)
[2023-01-29] MEDS: FLUTICASONE/VILANTEROL 200/25MCG 14 PUFFS/INHALER INH SCH (07:39)
[2023-01-29] MEDS: UMECLIDINIUM BROMIDE 62.5MCG/BLISTER 7 PUFFS/INHALER INH SCH (07:39)
[2023-01-29] MEDS: FLUTICASONE PROPIONATE NA SPR 16 GM BTL SCH ×2 (07:39→20:35)
[2023-01-29] MEDS: DICLOFENAC SOD 1% GEL 100 GM TUBE EXT SCH ×4 (07:40→20:35)
[2023-01-29] MEDS: methylPREDNISolone 40 MG in SYRINGE 0 ML IV SCH (07:40)
[2023-01-29] MEDS: ALBUTEROL 0.083% NEBU SOLN 3 ML VIAL INH PRN ×2 (15:36→19:32)
[2023-01-29] MEDS ORDERED: CLOPIDOGREL BISULFATE 75 MG TAB PO ONE (17:20)
--- NOTE | 2023-01-29 17:53 | Hospitalist Progress Note ---
Date of Service January 29, 2023 Assessment & Plan (1) COPD (chronic obstructive pulmonary disease): Plan: COPD, but also probably some degree of restrictive lung disease versus effort doing PFTsbut he does have both tobacco and coal dust exposure, as well as a fairly large bleb. For now treat the acute/subacute worsening as a COPD exacerbation, but once he is leveled out to more of a baseline, probably would benefit from pulmonary evaluation given that he may have contributions from COPD, coal dust exposure, and simply the mass effect of his bleb. Steroids, Zithromax, inhalers (2) Neck muscle spasm: Plan: improving, continue Voltaren gel and scheduled Tylenol, Valium did not cause excess sedationraise the dose, additional IV mag, OMT done again. (3) Cerebrovascular disease: Plan: Another TIA todayalmost certainly small vessel disease, but on review, he did have a PFO on echo. At the same time, no clear indication for anticoagulation. We will get lower extremity venous Dopplers to make the possibility of a paradoxical embolus more clearobviously if venous Dopplers are positive start anticoagulation, but if not dual antiplatelets, escalate statinmost likely intracranial atherosclerosis, versus cryptogenic stroke in the setting of a PFO, but a low risk PFO by scoring. (4) Somatic dysfunction of cervical region: Plan: OMT as above (5) Somatic dysfunction of chest wall: Plan: OMT Done yesterday (6) Vertebral artery disease: Plan: secondary risk reduction/med management (7) DVT prophylaxis: Plan: Lovenox Admission and Anticipated Discharge Date Admission Date: January 28, 2023 Subjective neck feeling better less painful - but when coughing neck tightened up again but overall not nearly as bad as yesterday breathing about the same had another episode of L hand paresthesia and leg paresthesia as well - brief and self resolved Review of Systems Review of Systems: All systems reviewed & are unremarkable except as noted in HPI & below Physical Exam Physical Exam: In general he is awake and alert pleasant no distress. HEENT normocephalic atraumatic mucous membranes moist. Breathing unlabored no accessory muscle use good effort. Skin shows no rashes no pallor or icterus. Neuro without focal deficits. Osteopathic/musculoskeletal shows left sided C-spine paraspinals to be high tone, tender, decreased range of motionbut far less boggy than yesterday, direct myofascial as well as indirect unwinding done with improvement in range of motion, patient tolerated well. Results & Data Results & Data Vital Signs (Past 12 Hours) Vital Signs Temp Pulse Resp BP Pulse Ox O2 Del Method O2 Flow Rate 01/29/23 15:18 82 15 98 Room Air 01/29/23 15:03 98.1 F 82 18 124/75 93 Room Air 01/29/23 10:04 85 20 96 Nasal Cannula 2 01/29/23 08:01 Nasal Cannula 2 01/29/23 07:13 68 16 91 Nasal Cannula 2 01/29/23 07:01 97.9 F 64 16 103/54 L 93 Nasal Cannula 2 FiO2 01/29/23 15:18 21 01/29/23 15:03 01/29/23 10:04 01/29/23 08:01 01/29/23 07:13 01/29/23 07:01 PG Care Time/CCT Total # of Minutes Spent Total Time Spent with Patient: Total time spent is greater than 50% in coordination of care (as documented) at patient's floor/unit and/or counseling patient: Coding Level of Care Code 38067 SUB INP/OBS CARE 3/50MIN Diagnoses COPD (chronic obstructive pulmonary disease) J44.9 Neck muscle spasm M62.838 Cerebrovascular disease I67.9 Somatic dysfunction of cervical region M99.01 Somatic dysfunction of chest wall M99.08 Vertebral artery disease I77.9 DVT prophylaxis Z29.9 CPT Codes Musculoskeletal - Musculoskeletal: 460[address] Tr 1-2 Body regions ([id number])
[2023-01-29] MEDS: ATORVASTATIN 40 MG TAB PO SCH (20:33)
[2023-01-29] MEDS: SERTRALINE HCL 50 MG TABLET PO SCH (20:34)
[2023-01-29] MEDS: ENOXAPARIN INJ 40 MG/0.4 ML SYR SQ SCH (20:34)
[2023-01-29] MEDS: diazePAM 5 MG TABLET PO SCH (20:38)
--- NOTE | 2023-01-29 21:51 | Ultrasound Report ---
ULTRASOUND BILATERAL LOWER EXTREMITY VENOUS CLINICAL HISTORY: Transient ischemic attack. Patent foramen ovale. COMPARISON STUDY: No priors. TECHNIQUE: Real-time, grayscale, and color Doppler sonography of the deep veins of the right and left lower extremity was performed from the inguinal crease to the calf. Compression and augmentation wer e utilized. FINDINGS: There is no sonographic evidence of deep venous thrombosis identified in the right or left lower extremity. The common femoral, superficial femoral, and popliteal veins are patent and normally compressible bilaterally. The greater saphenous vein and the profunda femoris vein at the junction w ith the common femoral vein are clear in both legs. The visualized calf veins are patent bilaterally. IMPRESSION: There is no sonographic evidence of deep venous thrombosis identified in the right or lef t lower extremity. ACT 112: Negative or not required by law. Electronically signed by: Vinh Perdue M.D. 01/29/2023 9:49 PM
[2023-01-30] MEDS: ALBUTEROL HFA 8 GM INHALER INH SCH ×6 (02:50→22:11)
[2023-01-30] MEDS: ACETAMINOPHEN 325 MG TAB PO SCH ×3 (09:35→20:44)
[2023-01-30] MEDS: CLOPIDOGREL BISULFATE 75 MG TAB PO SCH (09:36)
[2023-01-30] MEDS: AZITHROMYCIN 250 MG TAB PO SCH (09:36)
[2023-01-30] MEDS: ASPIRIN 81 MG ECTAB PO SCH (09:36)
[2023-01-30] MEDS: FLUTICASONE/VILANTEROL 200/25MCG 14 PUFFS/INHALER INH SCH (09:37)
[2023-01-30] MEDS: FLUTICASONE PROPIONATE NA SPR 16 GM BTL SCH ×2 (09:37→20:47)
[2023-01-30] MEDS: methylPREDNISolone 40 MG in SYRINGE 0 ML IV SCH (09:38)
[2023-01-30] MEDS: UMECLIDINIUM BROMIDE 62.5MCG/BLISTER 7 PUFFS/INHALER INH SCH (09:40)
--- NOTE | 2023-01-30 11:33 | Hospitalist Progress Note ---
Date of Service January 30, 2023 Assessment & Plan (1) COPD (chronic obstructive pulmonary disease): (2) Cerebrovascular disease: (3) Neck muscle spasm: (4) Acute left hemiparesis: (5) TIA (transient ischemic attack): Plan (1) COPD (chronic obstructive pulmonary disease): Plan: PFTs consistent with obstructive pattern ie. COPD but also demonstrates some restrictive elements. ?mixed obstructive/restrictive lung disease vs. poor effort during spirometry testing. Continue to treat as COPD exacerbation. Also recommend outpatient pulmonology follow up and repeat PFt. - Steroids, Zithromax, inhalers (2) Neck muscle spasm: Plan: improving, continue Voltaren gel and scheduled Tylenol, Valium, additional IV mag, OMT done again. (3) Cerebrovascular disease: Plan: Patient continues to endorse symptomatology consistent with TIAs. Venous doppler was negative for DVTs but patient does have PFO per echo, cardioembolic origin still considered vs intracranial atherosclerotic origin. Will consult cardiology regarding possible JESSI before deciding on possible anticoagulation. - Continue statin, antiplatelet agents (4) Somatic dysfunction of cervical region: Plan: OMT (5) Somatic dysfunction of chest wall: Plan: OMT (6) Vertebral artery disease: Plan: secondary risk reduction/med management (7) DVT prophylaxis: Plan: Lovenox Admission and Anticipated Discharge Date Admission Date: January 28, 2023 Supervising Physician Co-Signing Physician Notes I personally examined the patient and verified all brennan points of history and exam, discussed case, and agree with decision making with Dr Lennon had another short-lived episode of left face hand and leg numbness. Spontaneous onset spontaneous resolution. Breathing about the same, neck slowly feeling better. Vitals noted, in general he is awake and alert pleasant no distress. Osteopathic shows his left-sided paraspinals to be better than yesterday but still somewhat high tone, tender, decreased range of motiondirect myofascial as well as indirect unwinding done, patient tolerated well. Exam otherwise as above, breathing unlabored. Recurrent TIAswhile it still most likely going to be intracranial atherosclerosis, and even if the PFO was involved, without a clear "smoking gun" I am not sure there will be indication for anticoagulation, it is a bit concerning that he is continuing to have symptoms almost dailywill ask cardiology to evaluate him from the standpoint of the PFO, and to consider JESSI (particularly to evaluate for any clot burden that might have not been seen on transthoracic, and would obviously not be seen on lower extremity venous Dopplers) continue dual antiplatelets and escalated statin, as well as close observation. COPD/chronic lung diseasehis pulmonary function tests seem to show restrictive and obstructivebut at the same time it may have all been effort/coordination driven. 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 Otherwise as above, DVT prophylaxis with Lovenox Subjective Pt evaluated at bedside, notes that he continues to have intermittent TIA-like symptoms. Endorses left sided numbness and tingling, intermittent dysarthria, denies weakness. Also notes that shortness of breath persists but that supplemental O2 helps. Neck still hurts but feels better than yesterday, states that the OMT helped. Review of Systems Review of Systems: All systems reviewed & are unremarkable except as noted in HPI & below Physical Exam Constitutional: WD/WN, vitals as above no acute distress Respiratory: diminished breath sounds bilaterally, no wheezes or crackles appreciated Cardiovascular: RRR, no murmur, no edema Musculoskeletal: strength 5/5 in upper extremities Skin: no rashes, warm and dry Neurologic: AOx4, diminished sensation on left side of face in V1-3 distribution Results & Data Results & Data Vital Signs (Past 12 Hours) Vital Signs Temp Pulse Resp BP Pulse Ox O2 Del Method O2 Flow Rate 01/30/23 11:18 73 16 93 Nasal Cannula 2 01/30/23 09:26 Room Air 01/30/23 07:41 36.5 C 74 17 111/72 92 Room Air 01/30/23 07:18 72 16 94 Room Air 01/30/23 02:50 18 Room Air Resident Activity Tracking Resident Involvement: Resident Care Provided Care Provided: Adult Hospital Medicine
[2023-01-30] MEDS: DICLOFENAC SOD 1% GEL 100 GM TUBE EXT SCH ×5 (12:52→20:46)
[2023-01-30] MEDS: ALBUTEROL 0.083% NEBU SOLN 3 ML VIAL INH PRN ×2 (18:18→22:08)
--- NOTE | 2023-01-30 18:31 | Billing Data ---
Date of Service January 30, 2023 Coding Level of Care Code 33496 SUB INP/OBS CARE
--- NOTE | 2023-01-30 18:31 | Hospitalist Progress Note ---
Date of Service January 30, 2023 Assessment & Plan Admission and Anticipated Discharge Date Admission Date: January 28, 2023 Results & Data Results & Data Vital Signs (Past 12 Hours) Vital Signs Temp Pulse Resp BP Pulse Ox O2 Del Method O2 Flow Rate 01/30/23 18:20 68 18 94 Room Air 01/30/23 14:53 69 18 92 Nasal Cannula 2 01/30/23 14:10 98.1 F 71 15 120/70 91 Nasal Cannula 2 01/30/23 11:18 73 16 93 Nasal Cannula 2 01/30/23 09:26 Room Air 01/30/23 07:41 97.7 F 74 17 111/72 92 Room Air 01/30/23 07:18 72 16 94 Room Air PG Care Time/CCT Total # of Minutes Spent Total Time Spent with Patient: Total time spent is greater than 50% in coordination of care (as documented) at patient's floor/unit and/or counseling patient: Coding Level of Care Code None Diagnoses CPT Codes Musculoskeletal - Musculoskeletal: 51844 [address] Tr 1-2 Body regions ([id number])
--- NOTE | 2023-01-30 19:52 | Electrocardiogram Report ---
Test Reason : Blood Pressure : / mmHG Vent. Rate : 070 BPM Atrial Rate : 070 BPM P-R Int : 144 ms QRS Dur : 086 ms QT Int : 390 ms P-R-T Axes : -16 035 033 degrees QTc Int : 421 ms Normal sinus rhythm Possible Anterior infarct , age undetermined Abnormal ECG When compared with ECG of 27-JAN-2023 06:46, No significant change was found Confirmed by Mitesh Infante ([id number]) on 01/30/2023 7:52:15 PM Referred By: Confirmed By:Mitesh Infante
[2023-01-30] MEDS: ATORVASTATIN 40 MG TAB PO SCH (20:45)
[2023-01-30] MEDS: ENOXAPARIN INJ 40 MG/0.4 ML SYR SQ SCH (20:47)
[2023-01-30] MEDS: SERTRALINE HCL 50 MG TABLET PO SCH (20:48)
[2023-01-30] MEDS: diazePAM 5 MG TABLET PO SCH (20:57)
[2023-01-31] MEDS: ALBUTEROL 0.083% NEBU SOLN 3 ML VIAL INH PRN ×6 (02:42→22:59)
[2023-01-31] MEDS: ALBUTEROL HFA 8 GM INHALER INH SCH ×6 (02:43→22:59)
--- NOTE | 2023-01-31 07:36 | Hospitalist Progress Note ---
Date of Service January 31, 2023 Assessment & Plan (1) COPD (chronic obstructive pulmonary disease): (2) Cerebrovascular disease: (3) Neck muscle spasm: (4) Acute left hemiparesis: (5) TIA (transient ischemic attack): Plan #COPD (chronic obstructive pulmonary disease): PFTs mixed obstructive/restricted pattern mixed obstructive/restrictive lung disease vs. poor effort during spirometry testing. Continue to treat as COPD exacerbation. Outpatient pulmonology follow up and repeat PFt. Steroids, Zithromax, inhalers #Neck muscle spasm: improving, continue Voltaren gel and scheduled Tylenol, Valium, additional IV mag OMT done again. #Cerebrovascular disease: Patient continues to endorse symptomatology consistent with TIAs. Venous doppler was negative for DVTs but patient does have PFO per echo, Per cardiology, no JESSI, cardioembolic origin 2/2 PFO unlikely, could consider event monitor to screen for episodes of afib Intracranial atherosclerotic origin more likely Continue statin, antiplatelet agents On d/c DAPT for 3 months, then likely NOAC only therapy thereafter #Somatic dysfunction of cervical region: OMT #Somatic dysfunction of chest wall: OMT #Vertebral artery disease: secondary risk reduction/med management #DVT prophylaxis: Lovenox Admission and Anticipated Discharge Date Admission Date: January 28, 2023 Supervising Physician Co-Signing Physician Notes I personally examined the patient and verified all brennan points of history and exam, discussed case, and agree with decision making with Dr Patel No further TIA symptoms. Woke up today with blurry visionbut both eyesleft was worse than right, no visual field cuts, quickly resolved. Neck pain and headache persist. Breathing still feels somewhat lousy.. Vitals noted, in gen eral he is awake and alert pleasant no distress. Osteopathic shows his left- sided paraspinals to be high tone, tender, decreased range of motion Suboccipitals high tone, more than beforeinhibitory pressureparaspinals also treated with indirect unwinding. Breathing unlabored no accessory muscle use good effort. Recurrent TIAs Appreciate cardiology input in regards to PFO. Continue dual antiplatelets and escalated statin. Fortunately no recurrent symptoms now. COPD/chronic lung diseasehis pulmonary function tests seem to show restrictive and obstructivebut at the same time it may have all been effort/coordination driven. 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 Otherwise as above, DVT prophylaxis with Lovenox Subjective 62 yo male PMHx COPD, anxiety with depression, PFO, coal dust exposure, presently incarcerated admitted with hx of TIA and questionable repeated TIA events. Today the patient reported a transient blurred vision over a period of a few minutes. Feeling more fatigued today. Continues to have SOB, neck pain, L-side numbness/tingling, intermittent dysarthria. Denies fever, chill, cardiac chest pain, N/V/D, dysuria, LE edema, weakness. Review of Systems Review of Systems: reviewed, see HPI Physical Exam Physical Exam: General: patient resting comfortably, NAD, non-toxic in appearance, AA&O x 4, answers questions appropriately and follows commands. Skin: warm, dry, intact HEENT: PERRLA, EOMI, NC/AT, anicteric sclera, conjunctiva without injection, moist mucus membranes, trachea midline, no thyromegaly, no JVD Heart: +S1/S2, regular, no m/r/g Lungs: equal air entry bilaterally, no rales/rhonchi/wheezes Abd: +BS, soft, NT/ND, no masses/organomegaly/ascites Ext: warm, no clubbing/cyanosis or edema Neuro: nonfocal, patient AA&O x 4, speech intact, ? L- facial droop, moving all extremities on command. Results & Data Results & Data Vital Signs (Past 12 Hours) Vital Signs Temp Pulse Resp BP Pulse Ox O2 Del Method O2 Flow Rate 01/31/23 07:12 36.3 C L 64 17 123/73 90 Nasal Cannula 3 01/31/23 06:57 64 18 92 Nasal Cannula 3 01/31/23 02:42 16 96 Nasal Cannula 2 01/30/23 22:08 78 20 95 Nasal Cannula 2 01/30/23 20:00 Room Air 01/30/23 20:37 36.5 C 70 18 113/60 93 Nasal Cannula 2 Resident Activity Tracking Resident Involvement: Resident Care Provided Care Provided: Adult [facility]
[2023-01-31 07:54] LABS: Creatinine Clr Calc Pharmacy 95.8 ml/min; Est GFR (African American) 111.2 ml/min; Est GFR (Non-African American) 95.9 ml/min
[2023-01-31] MEDS: ACETAMINOPHEN 325 MG TAB PO SCH ×3 (08:37→20:21)
[2023-01-31] MEDS: ASPIRIN 81 MG ECTAB PO SCH (08:38)
[2023-01-31] MEDS: AZITHROMYCIN 250 MG TAB PO SCH (08:38)
[2023-01-31] MEDS: CLOPIDOGREL BISULFATE 75 MG TAB PO SCH (08:38)
[2023-01-31] MEDS: FLUTICASONE PROPIONATE NA SPR 16 GM BTL SCH ×2 (08:39→20:22)
[2023-01-31] MEDS: DICLOFENAC SOD 1% GEL 100 GM TUBE EXT SCH ×4 (08:39→20:22)
[2023-01-31] MEDS: UMECLIDINIUM BROMIDE 62.5MCG/BLISTER 7 PUFFS/INHALER INH SCH (08:40)
[2023-01-31] MEDS: FLUTICASONE/VILANTEROL 200/25MCG 14 PUFFS/INHALER INH SCH (08:40)
[2023-01-31] MEDS: methylPREDNISolone 40 MG in SYRINGE 0 ML IV SCH (08:54)
[2023-01-31] MEDS ORDERED: FAMOTIDINE 20 MG TAB PO PRN (11:27)
[2023-01-31] MEDS ORDERED: IBUPROFEN 600 MG TAB PO PRN (11:27)
--- NOTE | 2023-01-31 13:42 | Cardiology Consultation ---
Date of Consultation January 31, 2023 Assessment & Plan (1) TIA (transient ischemic attack): (2) Patent foramen ovale: Plan 1. Patent foramen ovale: He appears to have had symptoms consistent with a TIA. 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 Despite the recurrent nature of these events and a possible thromboembolic etiology, the involvement of his PFO is still in question. It seems unlikely given the absence of other venous thromboembolism such as a PE or DVT. He does not currently meet the standard criteria for closure of a PFO based on his risk factors and objective findings. I do not think there is any utility to a JESSI as the presence of a PFO has already been established. There does not appear to be an independent indication for anticoagulation. If a possible etiology for his symptoms is still thromboembolic, more prolonged monitoring for occult atrial fibrillation could be considered. Otherwise, I would not pursue additional imaging for the PFO itself. History of Present Illness Reason for Consultation: TIA Requesting Physician: Gifty Attending Physician: Rodger Durbin, History of Present Illness The patient is a 62-year-old gentleman without a known history of cardiac disease who was admitted to the hospital primarily for breathing difficulty thought to be related to COPD. Well and at that time was known to have had an episode of speech difficulty and left-sided facial droop. He also reported some symptoms of paresthesias involving the left extremities. The symptoms resolved temporarily but he has had additional episodes over the past few days. At the time of this interview the patient states that he is generally feeling well perhaps some mild paresthesias involving the left hand and arm. Speech has returned to normal. In general he is an active individual who was accustomed to his significant exertion. His limitations are primarily related to dyspnea. He did not report exertional chest pain any time. He has not noticed any recent palpitations or extended episodes of tachycardia. He did not endorse symptoms of syncope or dizziness. He has had some frequent headaches recently which is unusual for him. No visual disturbance. Allergies Allergy/AdvReac Type Severity Reaction Status Date / Time Penicillins AdvReac Intermediate DIZZINESS Verified 01/28/23 16:40 Home Medications Medication Instructions Recorded Confirmed Type albuterol sulfate 90 mcg/actuation 3 puff inhalation Q4H 01/26/23 01/28/23 History aerosol inhaler fluticasone 100 mcg-salmeterol 50 1 inh inhalation BID 01/26/23 01/28/23 History mcg/dose blistr powdr for inhalation (Advair Diskus) sertraline 25 mg tablet 75 mg PO HS 01/26/23 01/28/23 History aspirin 81 mg tablet,delayed 81 mg PO QAM #30 tabs 01/27/23 01/28/23 Rx release tiotropium bromide 2.5 2 inh inhalation DAILY #4 grams 01/27/23 01/28/23 Rx mcg/actuation mist for inhalation (Spiriva Respimat) albuterol sulfate 2.5 mg/3 mL 2.5 mg inhalation QID PRN 01/28/23 01/28/23 History (0.083 %) solution for nebulization Shortness Of Breath Or Wheezing atorvastatin 40 mg tablet 40 mg PO HS 01/28/23 01/28/23 History azithromycin 500 mg tablet 250 mg PO DAILY 01/28/23 01/28/23 History prednisone 10 mg tablet 10 mg PO DIRECTED 01/28/23 01/28/23 History Patient History Medical History (Updated 01/31/23 @ 13:39 by Nilson Gonzalez MD) COPD (chronic obstructive pulmonary disease) Family history of heart attack Family history of stroke Surgical History H/O hernia repair S/P tonsillectomy Family History Mother , age 84 of heart disease Coronary heart disease Heart disease Breast cancer Father , age 35 of a massive heart attack Myocardial infarction Social History Smoking Status: Former smoker Tobacco Type: Cigarettes Age Started Using Tobacco: 12; Age Quit Using Tobacco: 62; packs per day: 2; Second Hand Exposure: No; Do You Dip or Chew Tobacco: No; Hx Alcohol Use: No Hx Substance Use: Yes Preferred Language: Welsh Communication Ability: Effective Radiology Physician Assistant Required: No Beliefs That Will Affect Care: None Current Living Situation: Other Current Living Situation Comment: Incarcerated current occupational status: unemployed 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 No pain or swelling in the legs. No abdominal discomfort. Breathing improved with breathing treatments. Physical Exam Physical Exam: The patient is alert and oriented. Mood and affect appeared normal. He answered all questions appropriately. HEENT: Pupils are equal and reactive to light and accommodation. Extraocular movements are intact. The sclerae are anicteric. Neuro: Cranial nerves intact Lungs: Clear to auscultation bilaterally. He has good air movement without use of accessory muscles. No rales wheezes or rhonchi. Cardiac: Heart demonstrates a regular rate and rhythm. Normal S1 and S2. No murmurs on examination. Pulses: The patient has palpable radial pulses bilaterally that are equal in intensity Abdomen: Appears distended, but nontender. Extremities: There was no evidence of hypoperfusion. There is no cyanosis or clubbing. There is no edema. Skin: I did not appreciate any rashes on examination today. Results & Data Vital Signs (Past 12 Hours) Vital Signs Temp Pulse Resp BP Pulse Ox O2 Del Method O2 Flow Rate 01/31/23 11:46 76 18 90 Nasal Cannula 3 01/31/23 08:35 Nasal Cannula 2 01/31/23 07:12 36.3 C L 64 17 123/73 90 Nasal Cannula 3 01/31/23 06:57 64 18 92 Nasal Cannula 3 01/31/23 02:42 16 96 Nasal Cannula 2 Laboratory Results Abnormal Lab Results 01/31/23 06:59 Creatinine 0.81 Est Cr Clr Drug Dosing 95.8 Est GFR ( Amer) 111.2 Est GFR (Non-Af Amer) 95.9 Diagnostic Findings Echocardiogram performed 01/27/2023: Normal LV systolic function with ejection fraction of 60 65%. No wall motion abnormalities. Mild LVH. Positive for PFO on contrast injection ECG Additional Comments: EKG obtained on 01/28/2023: Normal sinus rhythm. PG Care Time/CCT Total # of Minutes Spent Total Time Spent with Patient: Total time spent is greater than 50% in coordination of care (as documented) at patient's floor/unit and/or counseling patient: Coding Diagnoses TIA (transient ischemic attack) G45.9 Patent foramen ovale Q21.12
--- NOTE | 2023-01-31 18:44 | Billing Data ---
Date of Service January 31, 2023 Coding Level of Care Code 85445 SUB INP/OBS CARE MIN
--- NOTE | 2023-01-31 18:45 | Hospitalist Progress Note ---
Date of Service January 31, 2023 Assessment & Plan Admission and Anticipated Discharge Date Admission Date: January 31, 2023 Results & Data Results & Data Vital Signs (Past 12 Hours) Vital Signs Temp Pulse Resp BP Pulse Ox O2 Del Method O2 Flow Rate 01/31/23 15:16 78 18 92 Room Air 01/31/23 14:13 98.1 F 79 16 114/68 91 Room Air 01/31/23 11:46 76 18 90 Nasal Cannula 3 01/31/23 08:35 Nasal Cannula 2 01/31/23 07:12 97.3 F L 64 17 123/73 90 Nasal Cannula 3 01/31/23 06:57 64 18 92 Nasal Cannula 3 PG Care Time/CCT Total # of Minutes Spent Total Time Spent with Patient: Total time spent is greater than 50% in coordination of care (as documented) at patient's floor/unit and/or counseling patient: Coding Level of Care Code None Diagnoses CPT Codes Musculoskeletal - Musculoskeletal: 68682 Osteo Waldemar Tr 1-2 Body regions ([id number])
[2023-01-31] MEDS: diazePAM 5 MG TABLET PO SCH (20:21)
[2023-01-31] MEDS: ENOXAPARIN INJ 40 MG/0.4 ML SYR SQ SCH (21:07)
[2023-01-31] MEDS: SERTRALINE HCL 50 MG TABLET PO SCH (21:08)
[2023-01-31] MEDS: ATORVASTATIN 40 MG TAB PO SCH (21:08)
[2023-02-01] MEDS: ALBUTEROL HFA 8 GM INHALER INH SCH ×4 (02:18→16:11)
[2023-02-01] MEDS: ALBUTEROL 0.083% NEBU SOLN 3 ML VIAL INH PRN ×3 (07:32→15:19)
[2023-02-01] MEDS: FLUTICASONE/VILANTEROL 200/25MCG 14 PUFFS/INHALER INH SCH (08:18)
[2023-02-01] MEDS: UMECLIDINIUM BROMIDE 62.5MCG/BLISTER 7 PUFFS/INHALER INH SCH (08:18)
[2023-02-01] MEDS: FLUTICASONE PROPIONATE NA SPR 16 GM BTL SCH (08:19)
[2023-02-01] MEDS: methylPREDNISolone 40 MG in SYRINGE 0 ML IV SCH (08:21)
--- NOTE | 2023-02-01 08:21 | Hospitalist Progress Note ---
Date of Service February 01, 2023 Assessment & Plan (1) COPD (chronic obstructive pulmonary disease): (2) Cerebrovascular disease: (3) Neck muscle spasm: (4) Acute left hemiparesis: (5) TIA (transient ischemic attack): Plan #COPD (chronic obstructive pulmonary disease): PFTs mixed obstructive/restricted pattern mixed obstructive/restrictive lung disease vs. poor effort during spirometry testing. Continue to treat as COPD exacerbation. Outpatient pulmonology follow up and repeat PFt. Steroids, Zithromax, inhalers #Neck muscle spasm: improving, continue Voltaren gel and scheduled Tylenol, Valium, additional IV mag OMT done again. #Cerebrovascular disease: Patient continues to endorse symptomatology consistent with TIAs. Venous doppler was negative for DVTs but patient does have PFO per echo, Per cardiology, no JESSI, cardioembolic origin 2/2 PFO unlikely, could consider event monitor to screen for episodes of afib Intracranial atherosclerotic origin more likely Continue statin, antiplatelet agents On d/c DAPT for 3 months, then likely NOAC only therapy thereafter #Somatic dysfunction of cervical region: OMT #Somatic dysfunction of chest wall: OMT #Vertebral artery disease: secondary risk reduction/med management #DVT prophylaxis: Lovenox Admission and Anticipated Discharge Date Admission Date: January 31, 2023 Subjective 62 yo male PMHx COPD, anxiety with depression, PFO, coal dust exposure, presently incarcerated admitted with hx of TIA and questionable repeated TIA events. Today the patient reported a transient blurred vision over a period of a few minutes. Feeling more fatigued today. Continues to have SOB, neck pain, L-side numbness/tingling, intermittent dysarthria. Denies fever, chill, cardiac chest pain, N/V/D, dysuria, LE edema, weakness. Review of Systems Review of Systems: reviewed, see HPI Physical Exam Physical Exam: General: patient resting comfortably, NAD, non-toxic in appearance, AA&O x 4, answers questions appropriately and follows commands. Skin: warm, dry, intact HEENT: PERRLA, EOMI, NC/AT, anicteric sclera, conjunctiva without injection, moist mucus membranes, trachea midline, no thyromegaly, no JVD Heart: +S1/S2, regular, no m/r/g Lungs: equal air entry bilaterally, no rales/rhonchi/wheezes Abd: +BS, soft, NT/ND, no masses/organomegaly/ascites Ext: warm, no clubbing/cyanosis or edema Neuro: nonfocal, patient AA&O x 4, speech intact, ? L- facial droop, moving all extremities on command. Results & Data Results & Data Vital Signs (Past 12 Hours) Vital Signs Pulse Resp Pulse Ox O2 Del Method O2 Flow Rate 02/01/23 07:33 60 16 90 Nasal Cannula 2 01/31/23 22:59 78 16 93 Nasal Cannula 2 01/31/23 20:52 Nasal Cannula 2
[2023-02-01] MEDS: DICLOFENAC SOD 1% GEL 100 GM TUBE EXT SCH ×2 (08:23→13:47)
[2023-02-01] MEDS: ASPIRIN 81 MG ECTAB PO SCH (09:18)
[2023-02-01] MEDS: AZITHROMYCIN 250 MG TAB PO SCH (09:18)
[2023-02-01] MEDS: CLOPIDOGREL BISULFATE 75 MG TAB PO SCH (09:18)
[2023-02-01] MEDS: ACETAMINOPHEN 325 MG TAB PO SCH ×2 (09:20→14:05)
--- NOTE | 2023-02-01 15:53 | Discharge Summary ---
Date of Service February 01, 2023 Admission HPI Per Admitting Provider very pleasant 62-year-old male just discharged yesterday after TIAnotes that he was [facility] the [facility] in [facility] and had a coughing fit and some nosebleed or coughed up some blood, and felt very weak. Also separately notes that he has a lot of neck pain on the left side that does not seem to radiate, although he does have tingling up and around the left side of his head and a little bit across his face. 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 Admission Exam Per Admitting Provider General he is awake and alert fatigued but no distress. HEENT normocephalic atraumatic mucous membranes moist, musculoskeletal/osteopathic shows left sided C-spine paraspinals and levator Scap regional muscles as well as suboccipitals to be high tone very tender decreased range of motiondirect myofascial and inhibitory pressure with mild change in tissue texture, patient tolerated well; musculoskeletal also shows left sided ribs to be decreased range of motionbalanced ligamentous tension with mild tissue texture improvementpatient tolerated well. Lungs are diminished throughout faint bibasilar Rales that seem most consistent with atelectasis, no accessory muscle use no rhonchi no wheezes. Abdomen is soft nondistended nontender no masses organomegaly. Extremities without sinus clubbing or edema no calf tenderness. Neuro without focal deficits. Skin without rashes pallor or icterus. CBC, CMP, MRI brain, CT angio, CT chest, chest x-ray, EKG, prior visit neuro consult and discharge summary all reviewed. Principal Diagnosis TIA, COPD, muscle spasm Discharge Exam General: patient resting comfortably, NAD, non-toxic in appearance, AA&O x 4, answers questions appropriately and follows commands. Skin: warm, dry, intact HEENT: NC/AT, anicteric sclera, conjunctiva without injection, moist mucus membranes, trachea midline, no thyromegaly, no JVD Heart: +S1/S2, regular, no m/r/g Lungs: equal air entry bilaterally, +wheezing, decreased air movement bilaterally Abd: +BS, soft, NT/ND, no masses/organomegaly/ascites Ext: warm, no clubbing/cyanosis or edema Neuro: nonfocal, patient AA&O x 4, speech intact, no facial droop, moving all extremities on command. Discharge Data Allergies Allergy/AdvReac Type Severity Reaction Status Date / Time Penicillins AdvReac Intermediate DIZZINESS Verified 01/28/23 16:40 Consultations 01/28/23 19:19 ED Decision to Admit Stat 01/30/23 18:27 Consult Cardiology Routine Ordered Studies 01/28/23 15:46 CT head/brain wo con Stat CTA head w con [CT angio head w con] Stat CTA neck with con [CT angio neck with con] Stat 01/28/23 15:47 CTA chest dissec wo/w con [CT angio chest dissec wo/w con] Stat 01/28/23 17:16 MRI Brain [MR brain wo con] Stat 01/29/23 17:40 US venous doppler LE Routine Hospital Course (1) COPD (chronic obstructive pulmonary disease): (2) Cerebrovascular disease: (3) Neck muscle spasm: (4) Acute left hemiparesis: (5) TIA (transient ischemic attack): Plan #COPD (chronic obstructive pulmonary disease): PFTs mixed obstructive/restricted pattern mixed obstructive/restrictive lung disease vs. poor effort during spirometry testing. Continue to treat as COPD exacerbation. Outpatient pulmonology follow up and repeat PFt. Steroids, Zithromax, inhalers #Neck muscle spasm: likely compressing his occipital nerve and causing the unilateral tingling sensation isolated to his head/neck improving, continue Voltaren gel and scheduled Tylenol, Valium, additional IV mag OMT done again. #Cerebrovascular disease: Patient continues to endorse symptomatology consistent with TIAs. Venous doppler was negative for DVTs but patient does have PFO per echo, Per cardiology, no JESSI, cardioembolic origin 2/2 PFO unlikely, could consider event monitor to screen for episodes of afib Intracranial atherosclerotic origin more likely Continue statin, antiplatelet agents On d/c DAPT for 3 months, then likely DOAC only therapy thereafter #Somatic dysfunction of cervical region: OMT #Somatic dysfunction of chest wall: OMT #Vertebral artery disease: secondary risk reduction/med management #DVT prophylaxis: Lovenox Total Time Total Time Spent Total Time Spent (In Minutes): <30 Discharge Plan Discharge Items [facility] Reason For Visit: COPD, NECK PAIN Discharge Diagnosis: COPD, cerebrovascular disease, neck spasms Activity: Resume your previous activity Non-emergency contact: Primary Care Provider and Air Hoist Operator Call non-emergency contact if: you have any medication questions Follow-up/Referrals: [facility] [Primary Care Provider] - Diet: Regular and Heart Healthy Addtl Attending Provider Instructions: chronic lung disease -Appears to have fairly severe COPD/emphysema, 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 - spirometry obtained during this hospitalization showed very poor air movementwas a little bit difficult to interpret, as I think the patient had a bit of difficulty coordinating, but his FEV1 was only 52% of predicted, FVC only 57% of predictedindicating very poor air movementobviously the tests appeared more consistent with restrictive than obstructivewhere is clinically appears much more obstructive, but given his overall severity of illness, and the complexity of possible causes (COPD, coal mine dust inhalation, and a very large emphysematous bleb in his right upper lung) would appreciate having him have pulmonary follow-up as an outpatient. - For nowmanaged his breathing is a COPD exacerbationhad further azithromycin and higher dosing of steroids in the hospital. Can stop azithromycin at discharge, and taper prednisone againstarting at 60 mg, and tapering down as per the prescription - continue Spiriva every day - increased Advair to 500/50 twice daily - continue albuterol via nebulizer or inhaler up to every 4 hours as needed shortness of breath/wheeze - follow pulse ox periodicallymay be at the edge of requiring chronic oxygen cerebrovascular disease - in the last week has had multiple TIAshis symptoms have been fortunately fairly stereotyped with left face hand and leg paresthesias, all spontaneous onset spontaneous resolution - appears most plausibly to be cerebrovascular atherosclerosis as the mechanismand now that he has been on dual antiplatelets with aspirin and Plavix, as well as escalated dosing of Lipitor to 80 mg, for a couple dayshe has not had recurrence of symptoms - of note, he does have a small PFO, but after further review by myself, neurology, and cardiology, it is not likely to be of significance; and yet, it would be worthwhile to continue to monitor him for recurrence of symptoms, and not directly related to the PFO, but directly related to central embolic causes for his TIAs, would be well worthwhile to do ambulatory cardiac rhythm monitoring - continue dual antiplatelets for about 3 months, then stop aspirin and continue on Plavix - given his complexity with recurrent TIAs, as well as the question of mechanism for cerebrovascular ischemia between (most likely) cerebrovascular atherosclerosis versus (far less likely but not impossible) PFOwould recommend ongoing neurology follow-up neck pain/neck muscle spasms - he had left-sided paraspinal spasmsfortunately nothing radicular and there did not appear to be any underlying disease process. This has improved a good bit, but is still present. In the hospital we utilized intravenous magnesium, OMT, diazepam nightly, scheduled Tylenol, and Voltaren gel 4 times daily - at discharge, would recommend continuing the scheduled Tylenol and Voltaren gel for now, and wean both over the coming days/weeks as possible - with his cerebrovascular disease, would avoid systemic NSAIDs - of note, he does have some paresthesias on the side of his head that seem to have a pattern very different than his TIA symptoms that involve his face/hand/legand I suspect these temporal region paresthesias are more from muscle compression on his greater occipital nerve from the neck muscle spasms obviously a very acutely and chronically complicated patientwould appreciate [facility] in the next week, and then fairly frequently (such as monthly) for the near future Pending Studies at Discharge: No Stand-Alone Forms: My [facility] Skilled Items Patient informed of condition?: Yes Discharge Level of Care: Other Communicable Disease: No Discharge Prognosis: Stable Lines: None Urinary Catheter: No Medications and DC Order Prescriptions: New atorvastatin 40 mg Tablet 80 mg PO HS Qty: 30 0RF acetaminophen 325 mg Tablet 650 mg PO TID Qty: 20 0RF clopidogrel 75 mg Tablet 75 mg PO QAM Qty: 30 0RF diclofenac sodium [Voltaren Arthritis Pain] 1 % Gel 4 g EXT QID Qty: 100 0RF fluticasone propion-salmeterol [Advair Diskus] 500-50 mcg/dose blister with device 1 inh inhalation BID Qty: 60 0RF prednisone 10 mg tablet 10 mg PO DIRECTED Qty: 42 0RF Rx Instructions: 6 po x2 days, then 5 po x2days, then 4 po x2days, then 3 [id number], then [id number], then [id number] then stop Continued albuterol sulfate 2.5 mg /3 mL (0.083 %) Solution For Nebulization 2.5 mg INHALATION QID PRN (Reason: Shortness Of Breath Or Wheezing) sertraline 25 mg Tablet 75 mg PO HS aspirin 81 mg Tablet,Delayed Release (Dr/Ec) 81 mg PO QAM Qty: 30 0RF Spiriva Respimat 2.5 mcg/actuation mist 2 inh inhalation DAILY Qty: 4 0RF Changed albuterol sulfate 90 mcg/actuation HFA aerosol inhaler 3 puff INHALATION Q4H PRN (Reason: sob) Qty: 6.7 0RF Discontinued prednisone 10 mg Tablet 10 mg PO DIRECTED Rx Instructions: STARTED 01/28/23 FOR 3 DAY, 30 MG X 1 DAY, 20 MG X 1 DAY, 10 MG X 1 DAY. atorvastatin 40 mg tablet 40 mg PO HS azithromycin 500 mg tablet 250 mg PO DAILY Rx Instructions: STARTED 01/28/23 FOR 5 DAYS. fluticasone propion-salmeterol [Advair Diskus] 100-50 mcg/dose Blister With Device 1 inh INHALATION BID Discharge Orders: Discharge Order (Routine); Ordered 02/01/23 Ordered By: Rodger Cruz/Other Patient Handouts: TIA Dc Admission Data Admit Date/Time: 01/31/23 08:10 Attending Provider: Rodger Durbin Admit Provider: Rodger Durbin Primary Care Provider: [facility] Other Providers: Anselmo Gilliam ; iNlson Gonzalez. Other Interventions: Discharge Summary Assessment (RN) Last Done: 02/01/23 15:15 Supervising Physician Co-Signing Physician Notes I personally examined the patient and verified all brennan points of history and exam, discussed case, and agree with decision making with Dr Patel No further TIA symptoms. Feels about the same, expresses understanding of discharge while still under our service rather than after transition of care, given the complexity of his plans, the fact that he is not likely to really feel dramatically better anytime soon, and that way if we create his discharge plan where sure that all elements are being addressed. Vitals noted, in general he is awake and alert pleasant no distress. Breathing unlabored no accessory muscle use good effort. Recurrent TIAs Appreciate cardiology input in regards to PFO. Continue dual antiplatelets and escalated statin. Fortunately no recurrent symptoms now. See discharge instructions COPD/chronic lung diseasehis pulmonary function tests seem to show restrictive and obstructivebut at the same time it may have all been effort/coordination driven. 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 See discharge instructions neck pain/cervical somatic dysfunction responded nicely to OMT. Continue Voltaren gel and Tylenol for now. Otherwise as above, DVT prophylaxis with Lovenox Utilized during his stay Resident Activity Tracking Resident Involvement: Resident Care Provided Care Provided: Adult Hospital Medicine
--- NOTE | 2023-02-01 19:07 | Billing Data ---
Date of Service February 01, 2023 Coding Level of Care Code 17059 IN/OBS DISCH 30 MIN/LESS
== END 2023-02-01 16:40 | DRG 69 ==
LOC: 3W 15:40 → ED 15:40 → 3W 21:57